=== PATIENT | female | born 1960 | race Caucasian/White ===

== ENCOUNTER 2017-06-03 07:49 | Inpatient (IN) | payer MEDICARE ==
[~2017-06-03] VITALS: Ht 165.1 cm; Wt 75.0 kg
[2017-06-03] VITALS (7 sets, daily range): BP systolic 127–175; BP diastolic 63–88; PULSE 67–83; RESP 16–20; TEMP 96.1–98.6; O2SAT 96–99
[~2017-06-03 07:49] MED LIST: ALBU1AER INH; BISA5TAB5 PO; CARI350T19 PO; HYDR-2768 PO; LEVO.075 PO; LISI-363 PO; PERC5TAB12 PO; PROM25TA5 PO; ZOLP10TA3 PO
--- NOTE | 2017-06-03 08:11 | PD ---
HPI Chief Complaint: Abdominal Pain Time Seen by Provider: 08:11 Travel History International Travel<30 days: No Contact w/Intl Traveler<30days: No Traveled to known affect area: No History of Present Illness HPI 57-year-old female came to the emergency room with her with history of epigastric abdominal pain radiating to her back as per this is been going on for past one week but really got worse last night. She has been vomiting and gagging. She's been unable to keep anything down. Patient has history of pancreatitis. Her gallbladder was taken out. Patient was in [facility] and [facility] last year and was seen by the GI specialist there. She required a stent being put in into her pancreatic duct and a sphincterotomy. The stent came out in 2 weeks. Patient does not want to go back and follow up with the GI specialist. She wants to be seen here and hence came here from [place]. Vital signs were relatively stable. [facility] Past Medical History Narrative Medical List of her past medical, surgical, social and family history is reviewed from the nursing note. High Cholesterol: Yes Gastrointestinal Disorders: Yes (GI PROBLEMS, POLYPS) Hypertension: Yes Neurologic: Yes (NEUROPATHY) Pancreatitis: Yes Thyroid Disease: Yes Tubal Ligation: Yes Past Surgical History Cholecystectomy: Yes Hysterectomy: Yes (PARTIAL) Pacemaker: No Social History Alcohol Use: No Tobacco Use: Yes Substance Use: No Allergies-Medications (Allergen,Severity, Reaction): Coded Allergies: diatrizoate meglumine (Unverified Allergy, Severe, Hives, 01/10/17) gadobenic acid (Unverified Allergy, Severe, Hives, 01/10/17) gadodiamide (Unverified Allergy, Severe, Hives, 01/10/17) gadoteridol (Unverified Allergy, Severe, Hives, 01/10/17) iodixanol (Unverified Allergy, Severe, Hives, 01/10/17) iohexol (Unverified Allergy, Severe, Hives, 01/10/17) tramadol (Unverified Adverse Reaction, Intermediate, 01/10/17) N/V, SHAKES & SWEATS morphine (Verified Adverse Reaction, Mild, ABDOMINAL BURNING, 06/03/17) Comments List of her allergies reviewed from the nursing note. Reported Meds & Prescriptions Reported Meds & Active Scripts Active Reported Hydrocodone-Acetamin 2.5-325 (Hydrocodone/Acetaminophen) 2.5 Mg-325 Mg Tablet Tab PO Zolpidem (Zolpidem Tartrate) 10 Mg Tab 10 Mg PO HS PRN Phenergan (Promethazine HCl) 25 Mg Tablet 25 Mg PO Q6H PRN Soma (Carisoprodol) 350 Mg Tab 350 Mg PO QID PRN Synthroid (Levothyroxine Sodium) 75 Mcg Tab 75 Mcg PO DAILY Lisinopril 20 Mg Tab 20 Mg PO DAILY Narrative Medication List of her home medications reviewed from the nursing note. Review of Systems Except as stated in HPI: all other systems reviewed are Neg Gastrointestinal: Positive: Nausea, Vomiting, Abdominal Pain Physical Exam Narrative GENERAL: Awake, alert, moderate distress SKIN: Focused skin assessment warm/dry. HEAD: Atraumatic. Normocephalic. EYES: Pupils equal and round. No scleral icterus. No injection or drainage. ENT: No nasal bleeding or discharge. Mucous membranes pink and moist. NECK: Trachea midline. No JVD. CARDIOVASCULAR: Regular rate and rhythm. No murmur appreciated. RESPIRATORY: No accessory muscle use. Clear to auscultation. Breath sounds equal bilaterally. GASTROINTESTINAL: Abdomen soft, non-tender, nondistended. Hepatic and splenic margins not palpable. MUSCULOSKELETAL: No obvious deformities. No clubbing. No cyanosis. No edema. NEUROLOGICAL: Awake and alert. No obvious cranial nerve deficits. Motor grossly within normal limits. Normal speech. PSYCHIATRIC: Appropriate mood and affect; insight and judgment normal. Data Data Last Documented VS Vital Signs Date Time Temp Pulse Resp B/P (MAP) Pulse Ox O2 Delivery O2 Flow Rate FiO2 06/03/17 09:25 83 19 161/87 (111) 99 Room Air 06/03/17 07:51 98.6 Orders Orders Complete Blood Count With Diff (06/03/17 08:16) Comprehensive Metabolic Panel (06/03/17 08:16) Lipase (06/03/17 08:16) Urinalysis - C+S If Indicated (06/03/17 08:16) Ct Abd/Pel W/O Iv Contrast (06/03/17 08:16) Iv Access Insert/Monitor (06/03/17 08:16) Ecg Monitoring (06/03/17 08:16) Oximetry (06/03/17 08:16) Morphine Inj (Morphine Inj) (06/03/17 08:30) Ondansetron Inj (Zofran Inj) (06/03/17 08:30) Sodium Chlor 0.9% 1000 Ml Inj (Ns 1000 M (06/03/17 08:16) Sodium Chloride 0.9% Flush (Ns Flush) (06/03/17 08:30) Electrocardiogram (06/03/17 08:16) Troponin I (06/03/17 08:16) Ketorolac Inj (Toradol Inj) (06/03/17 08:30) Admit Order (Ed Use Only) (06/03/17 09:35) Labs Laboratory Tests Test 06/03/17 08:25 06/03/17 08:34 White Blood Count 11.7 TH/MM3 Red Blood Count 4.58 MIL/MM3 Hemoglobin 14.5 GM/DL Hematocrit 41.5 % Mean Corpuscular Volume 90.6 FL Mean Corpuscular Hemoglobin 31.6 PG Mean Corpuscular Hemoglobin Concent 34.9 % Red Cell Distribution Width 12.7 % Platelet Count 252 TH/MM3 Mean Platelet Volume 9.6 FL Neutrophils (%) (Auto) 64.6 % Lymphocytes (%) (Auto) 24.9 % Monocytes (%) (Auto) 6.7 % Eosinophils (%) (Auto) 3.0 % Basophils (%) (Auto) 0.8 % Neutrophils # (Auto) 7.6 TH/MM3 Lymphocytes # (Auto) 2.9 TH/MM3 Monocytes # (Auto) 0.8 TH/MM3 Eosinophils # (Auto) 0.4 TH/MM3 Basophils # (Auto) 0.1 TH/MM3 CBC Comment DIFF FINAL Differential Comment Blood Urea Nitrogen 8 MG/DL Creatinine 0.80 MG/DL Random Glucose 106 MG/DL Total Protein 7.4 GM/DL Albumin 4.1 GM/DL Calcium Level 9.4 MG/DL Alkaline Phosphatase 80 U/L Aspartate Amino Transf (AST/SGOT) 3 U/L Alanine Aminotransferase (ALT/SGPT) 13 U/L Total Bilirubin 0.3 MG/DL Sodium Level 140 MEQ/L Potassium Level 3.8 MEQ/L Chloride Level 107 MEQ/L Carbon Dioxide Level 24.1 MEQ/L Anion Gap 9 MEQ/L Estimat Glomerular Filtration Rate 74 ML/MIN Troponin I LESS THAN 0.02 NG/ML C-Reactive Protein 1.80 MG/DL Triglycerides Level 121 MG/DL Amylase Level 45 U/L Lipase 138 U/L Urine Color LIGHT-YELLOW Urine Turbidity CLEAR Urine pH 5.5 Urine Specific [place] 1.003 Urine Protein NEG mg/dL Urine Glucose (UA) NEG mg/dL Urine Ketones NEG mg/dL Urine Occult Blood NEG Urine Nitrite NEG Urine Bilirubin NEG Urine Urobilinogen LESS THAN 2.0 MG/DL Urine Leukocyte Esterase SMALL Urine RBC 1 /hpf Urine WBC 1 /hpf Urine Squamous Epithelial Cells <1 /hpf Microscopic Urinalysis Comment CULT NOT INDICATED MDM Medical Decision Making Medical Screen Exam Complete: Yes Emergency Medical Condition: Yes Medical Record Reviewed: Yes Interpretation(s) Twelve-lead EKG was reviewed by me. Normal sinus rhythm, normal axis, nonspecific ST-T wave changes. Heart rate of 67 bpm. Differential Diagnosis Acute pancreatitis, dehydration Narrative Course 9:10 AM blood test results are back and within acceptable limits. However CT scan of the abdomen and pelvis suggests some peripancreatic stranding suggestive of acute pancreatitis. Given her significant past medical history I would like to admit her so that she can be seen by GI specialist. Patient was medicated for pain and nausea and IV fluid given. Procedures EKG Prior to Arrival: No Diagnosis Primary Impression: Acute pancreatitis Qualified Codes: K85.90 - Acute pancreatitis without necrosis or infection, unspecified Additional Impression: Intractable pain Admitting Information Admitting Physician Requests: Vandana Payan MD Jun 03, 2017 08:11
[2017-06-03] MEDS ORDERED: SODIUM CHLOR 0.9% 1000 ML INJ 1,000 ML IV SCH (08:16)
[2017-06-03] MEDS ORDERED: MORPHINE SULFATE 4 MG/ML INJ IV PUSH ONE (08:30)
[2017-06-03] MEDS ORDERED: ONDANSETRON HCL 4 MG/2 ML VIAL IVP ONE (08:30)
[2017-06-03] MEDS ORDERED: KETOROLAC TROMETHAMINE 30 MG/ML (IVP) VIAL IV PUSH ONE (08:30)
[2017-06-03 08:36] LABS: AUTOMATED NEUTROPHIL # 7.6 TH/MM3 (1.8-7.7); BASOPHIL # 0.1 TH/MM3 (0-0.2); BASOPHIL % 0.8 % (0.0-2.0); EOSINOPHIL # 0.4 TH/MM3 (0-0.4); HEMATOCRIT 41.5 % (35.0-46.0); HEMOGLOBIN 14.5 GM/DL (11.6-15.3); LYMPH % 24.9 % (9.0-44.0); LYMPHOCYTE # 2.9 TH/MM3 (1.0-4.8); MEAN CELL VOLUME 90.6 FL (80.0-100.0); MEAN CORPUSCULAR HEMOGLOBIN 31.6 PG (27.0-34.0); MEAN CORPUSCULAR HGB CONC 34.9 % (32.0-36.0); MEAN PLATELET VOLUME 9.6 FL (7.0-11.0); MONO % 6.7 % (0.0-8.0); MONOCYTE # 0.8 TH/MM3 (0-0.9); NEUT % 64.6 % (16.0-70.0); PLATELET COUNT 252 TH/MM3 (150-450); RED BLOOD COUNT 4.58 MIL/MM3 (4.00-5.30); RED CELL DISTRIBUTION WIDTH 12.7 % (11.6-17.2); WHITE BLOOD COUNT 11.7 TH/MM3 (4.0-11.0)
[2017-06-03 08:50] LABS: BILIRUBIN, URINE NEG (NEG); BLOOD, URINE NEG (NEG); GLUCOSE,URINE NEG (NEG); KETONE, URINE NEG (NEG); NITRITE,URINE NEG (NEG); PH, URINE 5.5 (5.0-8.5); SQUAMOUS EPITHELIAL CELL URINE <1 /hpf (0-5); URINE COLOR LIGHT-YELLOW (YELLW/STRAW); URINE LEUKOCYTE ESTERASE SMALL (NEG)
[2017-06-03 08:51] LABS: ALBUMIN 4.1 GM/DL (3.4-5.0); AST (GOT) 3 U/L (15-37); BICARBONATE 24.1 MEQ/L (21.0-32.0); BLOOD UREA NITROGEN 8 MG/DL (7-18); CALCIUM 9.4 MG/DL (8.5-10.1); CHLORIDE 107 MEQ/L (98-107); GLOMERULAR FILTRATION RATE 74 ML/MIN (>89); GLUCOSE,RANDOM 106 MG/DL (74-106); LIPASE 138 U/L (73-393); SODIUM (NA) 140 MEQ/L (136-145)
[2017-06-03 08:52] LABS: ALT (GPT) 13 U/L (10-53)
[2017-06-03 08:56] LABS: ALKALINE PHOSPHATASE 80 U/L (45-117); TOTAL BILIRUBIN ADULT 0.3 MG/DL (0.2-1.0); TOTAL PROTEIN 7.4 GM/DL (6.4-8.2); TROPONIN I LESS THAN 0.02 NG/ML (0.02-0.05)
--- NOTE | 2017-06-03 09:00 | RADRPT ---
EXAM DATE/TIME: 06/03/2017 08:38 [facility] COMPARISON: No previous studies available for comparison. INDICATIONS : Epigastric abdominal pain for one week. ORAL CONTRAST: No oral contrast ingested. RADIATION DOSE: 11.10 CTDIvol (mGy) MEDICAL HISTORY : Pancreatitis. Hypertension. SURGICAL HISTORY : Appendectomy. Cholecystectomy.Colon resection.Pancreatic stent, hysterectomy. ENCOUNTER: Initial ACUITY: 1 week PAIN SCALE: 5/10 LOCATION: Bilateral upper quadrant TECHNIQUE: Volumetric scanning of the abdomen and pelvis was performed. Using automated exposure control and ad justment of the mA and/or kV according to patient size, radiation dose was kept as low as reasonably achievable to obtain optimal diagnostic quality images. DICOM format image data is available electro nically for review and comparison. FINDINGS: LOWER LUNGS: The visualized lower lungs are clear. LIVER: Homogeneous density without lesion. There is no dilation of the biliary tree. No calcified gallston es. Status post cholecystectomy. SPLEEN: Normal size without lesion. PANCREAS: Mild peripancreatic inflammatory changes are noted suggestive of acute pancreatitis. No focal pancrea tic abscess or pseudocyst is noted. Correlation with amylase and lipase is recommended. KIDNEYS: Normal in size and shape. There is no mass, stone, or hydronephrosis. ADRENAL GLANDS: Within normal limits. VASCULAR: There is no aortic aneurysm. BOWEL/MESENTERY: The stomach, small bowel, and colon demonstrate no acute abnormality. There is no free intraperitone al air or fluid. ABDOMINAL WALL: Within normal limits. RETROPERITONEUM: There is no lymphadenopathy. BLADDER: No wall thickening or mass. REPRODUCTIVE: Within normal limits. INGUINAL: There is no lymphadenopathy or hernia. MUSCULOSKELETAL: Within normal limits for patient age. CONCLUSION: Mild peripancreatic inflammatory changes are noted suggestive of acute pancreatitis. No focal pancrea tic abscess or pseudocyst is noted. Correlation with amylase and lipase is recommended. Milton Rose MD on June 03, 2017 at 8:50 Board Certified Radiologist. This report was verified electronically.
[2017-06-03] MEDS ORDERED: HEPARIN SODIUM - SQ 10,000 UNITS/ML VIAL SQ SCH (09:45)
[2017-06-03] MEDS ORDERED: SODIUM CHLORIDE 0.9% FLUSH 10 ML FLUSH IV FLUSH PRN (09:45)
[2017-06-03] MEDS ORDERED: MORPHINE SULFATE 4 MG/ML INJ IV PUSH PRN (09:45)
[2017-06-03 10:04] LABS: C-REACTIVE PROTEIN 1.8 MG/DL (0.00-0.30)
--- NOTE | 2017-06-03 10:27 | PD.CONS ---
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 Pain began intermittently a week ago and worse after eating, worsened last night after eating sandwich and was constant and severe. Admits nausea. NO vomiting, change in bowel habits, blood in stool, unintended weight loss. She had similar pain in 06/2016, seen at [facility] where she had ERCP and pancreatic stent placed which was removed 2 weeks after. She had episode 2013 and had cholecystectomy. Was seen in 2013 at [facility] by Dr Villagran who did pancreatic bx, S/P workup with EUS with FNA and FU imaging, Ca19-9. Workup was benign. Denies ETOh. REgularly Takes levothyroxine , lisinoprin, a statin, gabapentin, Soma, ambien. PFSH Past Medical History hypothyroid- autoimmune HTN HLD Past Surgical History cholecystectomy ERCP with pancreatic stent placement and subsequent removal hernia repair x 2 colon resection appy hysterectomy 2 x cervical fusion tubal ligation Coded Allergies: diatrizoate meglumine (Unverified Allergy, Severe, Hives, 01/10/17) gadobenic acid (Unverified Allergy, Severe, Hives, 01/10/17) gadodiamide (Unverified Allergy, Severe, Hives, 01/10/17) gadoteridol (Unverified Allergy, Severe, Hives, 01/10/17) iodixanol (Unverified Allergy, Severe, Hives, 01/10/17) iohexol (Unverified Allergy, Severe, Hives, 01/10/17) tramadol (Unverified Adverse Reaction, Intermediate, 01/10/17) N/V, SHAKES & SWEATS morphine (Verified Adverse Reaction, Mild, ABDOMINAL BURNING, 06/03/17) Family History Last Impressions Abdomen/Pelvis CT 06/03/17 0816 Signed Impressions: Service Date/Time: Monday, June 03, 2017 08:38 - CONCLUSION: Mild peripancreatic inflammatory changes are noted suggestive of acute pancreatitis. No focal pancreatic abscess or pseudocyst is noted. Correlation with amylase and lipase is recommended. Milton Rose MD Social History Last Impressions Abdomen/Pelvis CT 1/6/18 0816 Signed Impressions: Service Date/Time: Saturday, June 03, 2017 08:38 - CONCLUSION: Mild peripancreatic inflammatory changes are noted suggestive of acute pancreatitis. No focal pancreatic abscess or pseudocyst is noted. Correlation with amylase and lipase is recommended. Milton Rose MD Review of Systems Constitutional: DENIES: Weight loss Endocrine: DENIES: Polydipsia Eyes: DENIES: Blurred vision Ears, nose, mouth, throat: DENIES: Hearing loss Respiratory: DENIES: Cough Cardiovascular: DENIES: Chest pain Gastrointestinal: COMPLAINS OF: Abdominal pain, Nausea, DENIES: Black stools, Bloody stools, Constipation, Diarrhea, Vomiting Genitourinary: DENIES: Hematuria Musculoskeletal: DENIES: Joint Swelling Integumentary: DENIES: Jaundice Hematologic/lymphatic: DENIES: Bruising Immunologic/allergic: DENIES: Eczema Neurologic: DENIES: Abnormal gait Psychiatric: DENIES: Confusion GI Exam Vitals I&O Vital Signs Date Time Temp Pulse Resp B/P (MAP) Pulse Ox O2 Delivery O2 Flow Rate FiO2 06/03/17 09:25 83 19 161/87 (111) 99 Room Air 06/03/17 08:20 18 98 06/03/17 07:51 98.6 82 16 175/88 (117) 98 Imaging Last Impressions Abdomen/Pelvis CT 06/03/17815 Signed Impressions: Service Date/Time: Saturday, June 03, 2017 08:38 - CONCLUSION: Mild peripancreatic inflammatory changes are noted suggestive of acute pancreatitis. No focal pancreatic abscess or pseudocyst is noted. Correlation with amylase and lipase is recommended. Milton Rose MD Laboratory Test 06/03/17 08:25 06/03/17 08:34 White Blood Count 11.7 TH/MM3 Red Blood Count 4.58 MIL/MM3 Hemoglobin 14.5 GM/DL Hematocrit 41.5 % Mean Corpuscular Volume 90.6 FL Mean Corpuscular Hemoglobin 31.6 PG Mean Corpuscular Hemoglobin Concent 34.9 % Red Cell Distribution Width 12.7 % Platelet Count 252 TH/MM3 Mean Platelet Volume 9.6 FL Neutrophils (%) (Auto) 64.6 % Lymphocytes (%) (Auto) 24.9 % Monocytes (%) (Auto) 6.7 % Eosinophils (%) (Auto) 3.0 % Basophils (%) (Auto) 0.8 % Neutrophils # (Auto) 7.6 TH/MM3 Lymphocytes # (Auto) 2.9 TH/MM3 Monocytes # (Auto) 0.8 TH/MM3 Eosinophils # (Auto) 0.4 TH/MM3 Basophils # (Auto) 0.1 TH/MM3 CBC Comment DIFF FINAL Differential Comment Blood Urea Nitrogen 8 MG/DL Creatinine 0.80 MG/DL Random Glucose 106 MG/DL Total Protein 7.4 GM/DL Albumin 4.1 GM/DL Calcium Level 9.4 MG/DL Alkaline Phosphatase 80 U/L Aspartate Amino Transf (AST/SGOT) 3 U/L Alanine Aminotransferase (ALT/SGPT) 13 U/L Total Bilirubin 0.3 MG/DL Sodium Level 140 MEQ/L Potassium Level 3.8 MEQ/L Chloride Level 107 MEQ/L Carbon Dioxide Level 24.1 MEQ/L Anion Gap 9 MEQ/L Estimat Glomerular Filtration Rate 74 ML/MIN Troponin I LESS THAN 0.02 NG/ML C-Reactive Protein 1.80 MG/DL Triglycerides Level 121 MG/DL Amylase Level 45 U/L Lipase 138 U/L Urine Color LIGHT-YELLOW Urine Turbidity CLEAR Urine pH 5.5 Urine Specific [place] 1.003 Urine Protein NEG mg/dL Urine Glucose (UA) NEG mg/dL Urine Ketones NEG mg/dL Urine Occult Blood NEG Urine Nitrite NEG Urine Bilirubin NEG Urine Urobilinogen LESS THAN 2.0 MG/DL Urine Leukocyte Esterase SMALL Urine RBC 1 /hpf Urine WBC 1 /hpf Urine Squamous Epithelial Cells <1 /hpf Microscopic Urinalysis Comment CULT NOT INDICATED Physical Examination HEENT: PERRL; normocephalic; atraumatic; no jaundice. CHEST: CTA CARDIAC: Regular rate and rhythm with no murmur gallop or rubs. ABDOMEN: Soft, nondistended, epigastric and LUQ TTP; no hepatosplenomegaly; bowel sounds are present in all four quadrants. EXTREMITIES: No clubbing, cyanosis, or edema. SKIN: Normal; no rash; no jaundice. [employer]: No focal deficits; alert and oriented times three. Assessment and Plan Plan ASSESSMENT - abd pain - acute on chronic pancreatitis, unclear etiology. has had 2 episodes in past, 1st in 2012 and had gallbladder removed & EUS by Dr Villagran with benign bx; episode in 2016 for which she had ERCP and pancreatic stent placed. LFTS WNL, lipase WNL. CT imaging shows mild peripancreatic inflammation and changes suggestive acute pancreatitis, no abscess or cyst. in 2012 IGG4 was normal. regular meds include a statin per pt although her med list does not reflect this triglycerides pending, will rck IGG4 and get MRCP - pt allergic to contrast but can do 13 hours premed for contrast. PLAN - MRCP with premedication for contrast allergy - rck IGG4 - CLD - PPI - monitor labs - further recs as case unfolds This case d/w Dr Gabriel and this note is written on his behalf Sera Cyr Jun 03, 2017 10:27
[2017-06-03] MEDS ORDERED: MORPHINE SULFATE 2 MG/ML INJ IV PUSH PRN (11:00)
[2017-06-03] MEDS: ENOXAPARIN SODIUM 40 MG/0.4 ML SYRINGE SQ SCH (11:00)
[2017-06-03] MEDS: SODIUM CHLORIDE 0.9% FLUSH 10 ML FLUSH IV FLUSH PRN ×2 (11:33→15:27)
[2017-06-03] MEDS: MORPHINE SULFATE 2 MG/ML INJ IV PUSH PRN ×3 (11:33→22:31)
--- NOTE | 2017-06-03 12:45 | RADRPT ---
EXAM DATE/TIME: 06/03/2017 11:52 [facility] COMPARISON: CT ABDOMEN & PELVIS W/O CONTRAST, June 03, 2017, 8:38. INDICATIONS : Pancreatitis. MEDICAL HISTORY : Pancreatitis. Hypertension. SURGICAL HISTORY : Hysterectomy. Cholecystectomy. Fusion, cervical. ENCOUNTER: Initial ACUITY: 1 day PAIN SCORE: 5/10 LOCATION: Abdomen. TECHNIQUE: Multiplanar, multisequence magnetic resonance imaging of the abdomen was performed. H igh-resolution 3D dataset was utilized to reconstruct maximum-intensity projection (MIP) images. FINDINGS: INTRAHEPATIC BILE DUCTS: Within normal limits. No significant anatomical variant is present. EXTRAHEPATIC BILE DUCTS: The common bile duct measures 5 mm. No stone or filling defect is identi fied. GALLBLADDER: No stones, wall thickening, or pericholecystic fluid. LIVER: Normal size and signal intensity. No concerning liver lesion is identified on this non-con trast exam. PANCREAS: The main pancreatic duct is normal in size. There is no significant anatomical variant . Mild diffuse enlargement and minimal peripancreatic inflammatory changes suggest acute pancreatiti s. No mass is visualized on this non-contrast exam. OTHER: The remaining visualized structures demonstrate no acute abnormality on this non-contrast exam. CONCLUSION: 1. Mild diffuse hepatic enlargement and minimal peripancreatic inflammatory changes suggesting acute pancreatitis. Correlation with amylase and lipase values is suggested. 2. No biliary or pancreatic ductal dilatation. Milton Rose MD on June 03, 2017 at 12:39 Board Certified Radiologist. This report was verified electronically.
[2017-06-03] MEDS ORDERED: SOMA350T PO (13:35)
[2017-06-03] MEDS ORDERED: LEVO.075 PO (13:35)
[2017-06-03] MEDS ORDERED: HYDR-3649 PO (13:35)
[2017-06-03] MEDS ORDERED: ZOLP10TA3 PO (13:35)
[2017-06-03] MEDS ORDERED: LISI-515 PO (13:35)
[2017-06-03] MEDS ORDERED: PROM25TA10 PO (13:35)
[2017-06-03] MEDS: SODIUM CHLOR 0.9% 1000 ML INJ 1,000 ML IV SCH ×2 (14:13→17:04)
[2017-06-03] MEDS: PANTOPRAZOLE SODIUM 40 MG VIAL IV PUSH SCH (15:27)
--- NOTE | 2017-06-03 21:12 | HHI.HP ---
[facility] Unknown Admission Diagnosis acute pancreatitis, intractable pain Diagnoses: Chief Complaint: abdominal pain Travel History International Travel<30 Days: No Contact w/Intl Traveler <30 Da: No Traveled to Known Affected Are: No History of Present Illness 57 years old female presented to the ED with a complaint of epigastric abdominal pain radiating to her back which got extremely worse last night, with nausea vomiting. Patient has a history of pancreatitis in the past she had cholecystectomy. She followed up with GI at [facility] last year and she required a stent placed in her pancreatic duct and sphincterotomy. Patient at her decided to come here for a workup, to give from [place]. Currently abdominal pain 6 out of 10 after pain medication, nausea is settelled. Review of Systems Gastrointestinal: COMPLAINS OF: Abdominal pain, Nausea, Vomiting Except as stated in HPI: all other systems reviewed are Neg Past Family Social History Past Medical History hypothyroid- autoimmune HTN HLD Past Surgical History cholecystectomy ERCP with pancreatic stent placement and subsequent removal hernia repair x 2 colon resection appy hysterectomy 2 x cervical fusion tubal ligation Allergies: Coded Allergies: diatrizoate meglumine (Unverified Allergy, Severe, Hives, 01/10/17) gadobenic acid (Unverified Allergy, Severe, Hives, 01/10/17) gadodiamide (Unverified Allergy, Severe, Hives, 01/10/17) gadoteridol (Unverified Allergy, Severe, Hives, 01/10/17) iodixanol (Unverified Allergy, Severe, Hives, 01/10/17) iohexol (Unverified Allergy, Severe, Hives, 01/10/17) tramadol (Unverified Adverse Reaction, Intermediate, 01/10/17) N/V, SHAKES & SWEATS morphine (Verified Adverse Reaction, Mild, ABDOMINAL BURNING, 06/03/17) Family History reviewed noncontributory Social History smoke 1ppd , no alchol or illicit drugs Physical Exam Vital Signs Vital Signs Date Time Temp Pulse Resp B/P (MAP) Pulse Ox O2 Delivery O2 Flow Rate FiO2 06/03/17 20:13 98.3 70 17 134/63 (86) 96 06/03/17 16:00 96.1 73 20 141/73 (95) 98 06/03/17 12:00 96.3 68 20 127/69 (88) 96 06/03/17 11:12 96.2 67 20 140/71 (94) 96 06/03/17 09:25 83 19 161/87 (111) 99 Room Air 06/03/17 08:20 18 98 06/03/17 07:51 98.6 82 16 175/88 (117) 98 Physical Exam GENERAL: This is a well-nourished, well-developed patient, in no apparent distress. SKIN: No rashes, ecchymoses or lesions. Cool and dry. HEAD: Atraumatic. Normocephalic. No temporal or scalp tenderness. EYES: Pupils equal round and reactive. Extraocular motions intact. No scleral icterus. No injection or drainage. ENT: Nose without bleeding, purulent drainage or septal hematoma. Throat without erythema, tonsillar hypertrophy or exudate. Uvula midline. Airway patent. NECK: Trachea midline. No JVD or lymphadenopathy. Supple, nontender, no meningeal signs. CARDIOVASCULAR: Regular rate and rhythm without murmurs, gallops, or rubs. RESPIRATORY: Clear to auscultation. Breath sounds equal bilaterally. No wheezes , rales, or rhonchi. GASTROINTESTINAL: Abdomen soft,ttp epigastric area . . No guarding. MUSCULOSKELETAL: Extremities without clubbing, cyanosis, or edema. No joint tenderness, effusion, or edema noted. No calf tenderness. Negative Homans sign bilaterally. NEUROLOGICAL: Awake and alert. Cranial nerves II through XII intact. Motor and sensory grossly within normal limits. Five out of 5 muscle strength in all muscle groups. Normal speech. Laboratory Laboratory Tests Test 06/03/17 08:25 06/03/17 08:34 06/03/17 13:20 White Blood Count 11.7 Red Blood Count 4.58 Hemoglobin 14.5 Hematocrit 41.5 Mean Corpuscular Volume 90.6 Mean Corpuscular Hemoglobin 31.6 Mean Corpuscular Hemoglobin Concent 34.9 Red Cell Distribution Width 12.7 Platelet Count 252 Mean Platelet Volume 9.6 Neutrophils (%) (Auto) 64.6 Lymphocytes (%) (Auto) 24.9 Monocytes (%) (Auto) 6.7 Eosinophils (%) (Auto) 3.0 Basophils (%) (Auto) 0.8 Neutrophils # (Auto) 7.6 Lymphocytes # (Auto) 2.9 Monocytes # (Auto) 0.8 Eosinophils # (Auto) 0.4 Basophils # (Auto) 0.1 CBC Comment DIFF FINAL Differential Comment Blood Urea Nitrogen 8 Creatinine 0.80 Random Glucose 106 Total Protein 7.4 Albumin 4.1 Calcium Level 9.4 Alkaline Phosphatase 80 Aspartate Amino Transf (AST/SGOT) 3 Alanine Aminotransferase (ALT/SGPT) 13 Total Bilirubin 0.3 Sodium Level 140 Potassium Level 3.8 Chloride Level 107 Carbon Dioxide Level 24.1 Anion Gap 9 Estimat Glomerular Filtration Rate 74 Troponin I LESS THAN 0.02 C-Reactive Protein 1.80 Triglycerides Level 121 Amylase Level 45 Lipase 138 Urine Color LIGHT-YELLOW Urine Turbidity CLEAR Urine pH 5.5 Urine Specific [place] 1.003 Urine Protein NEG Urine Glucose (UA) NEG Urine Ketones NEG Urine Occult Blood NEG Urine Nitrite NEG Urine Bilirubin NEG Urine Urobilinogen LESS THAN 2.0 Urine Leukocyte Esterase SMALL Urine RBC 1 Urine WBC 1 Urine Squamous Epithelial Cells <1 Microscopic Urinalysis Comment CULT NOT INDICATED Result Diagram: 06/03/17 0825 06/03/17 0825 Imaging Last Impressions Abdomen/Pelvis CT 06/03/17 0816 Signed Impressions: Service Date/Time: Saturday, June 03, 2017 08:38 - CONCLUSION: Mild peripancreatic inflammatory changes are noted suggestive of acute pancreatitis. No focal pancreatic abscess or pseudocyst is noted. Correlation with amylase and lipase is recommended. Milton Rose MD Caprini VTE Risk Assessment Caprini VTE Risk Assessment: Mod/High Risk (score >= 2) Caprini Risk Assessment Model Point Value = 1 Point Value = 2 Point Value = 3 Point Value = 5 Age 41-60 Minor surgery BMI > 25 kg/m2 Swollen legs Varicose veins or History of unexplained or recurrent spontaneous Oral contraceptives or hormone replacement Sepsis (< 1 month) Serious lung disease, including pneumonia (< 1 month) Abnormal pulmonary function Acute myocardial infarction Congestive heart failure (< 1 month) History of inflammatory bowel disease Medical patient at bed rest Age 61-74 Arthroscopic surgery Major open surgery (> 45 min) Laparoscopic surgery (> 45 min) Malignancy Confined to bed (> 72 hours) Immobilizing plaster cast Central venous access Age >= 75 History of VTE Family history of VTE Factor V Leiden Prothrombin 25061C Lupus anticoagulant Anticardiolipin antibodies Elevated serum homocysteine Heparin-induced thrombocytopenia Other congenital or acquired thrombophilia Stroke (< 1 month) Elective arthroplasty Hip, pelvis, or leg fracture Acute spinal cord injury (< 1 month) Prophylaxis Regimen Total Risk Factor Score Risk Level Prophylaxis Regimen 0-1 Low Early ambulation 2 Moderate Order ONE of the following: *Sequential Compression Device (SCD) *Heparin 5000 units SQ BID 3-4 Higher Order ONE of the following medications: *Heparin 5000 units SQ TID *Enoxaparin/Lovenox 40 mg SQ daily (WT < 150 kg, CrCl > 30 mL/min) *Enoxaparin/Lovenox 30 mg SQ daily (WT < 150 kg, CrCl > 10-29 mL/min) *Enoxaparin/Lovenox 30 mg SQ BID (WT < 150 kg, CrCl > 30 mL/min) AND/OR *Sequential Compression Device (SCD) 5 or more Highest Order ONE of the following medications: *Heparin 5000 units SQ TID (Preferred with Epidurals) *Enoxaparin/Lovenox 40 mg SQ daily (WT < 150 kg, CrCl > 30 mL/min) *Enoxaparin/Lovenox 30 mg SQ daily (WT < 150 kg, CrCl > 10-29 mL/min) *Enoxaparin/Lovenox 30 mg SQ BID (WT < 150 kg, CrCl > 30 mL/min) AND *Sequential Compression Device (SCD) Assessment and Plan Assessment and Plan 57 years old female presented with epigastric abdominal pain nausea vomiting Acute on chronic pancreatitis History of biliary obstruction in the past with a stent placed History of hyperlipidemia Hypertension DVT prophylaxis Plan Admit for observation and pain management with morphine IV fluid, monitor electrolytes Monitor CMP and lipase Consult GI Continue home meds DVT prophylaxis with heparin and SCDs Discussed Condition With patient and JaydonciTerri Strickland MD Jun 03, 2017 21:12
[2017-06-03] MEDS: SODIUM CHLORIDE 0.9% FLUSH 10 ML FLUSH IV FLUSH SCH (22:30)
[2017-06-03] MEDS: ONDANSETRON HCL 4 MG/2 ML VIAL IV PUSH PRN (22:46)
[2017-06-04] VITALS (7 sets, daily range): BP systolic 112–160; BP diastolic 68–87; PULSE 63–85; RESP 16–20; TEMP 97–98.1; O2SAT 96–98
[2017-06-04] MEDS: SODIUM CHLOR 0.9% 1000 ML INJ 1,000 ML IV SCH ×3 (01:45→17:32)
[2017-06-04 05:59] LABS: AUTOMATED NEUTROPHIL # 5.5 TH/MM3 (1.8-7.7); BASOPHIL % 0.4 % (0.0-2.0); EOSINOPHIL # 0.4 TH/MM3 (0-0.4); EOSINOPHIL % 4.1 % (0.0-4.0); HEMATOCRIT 37.2 % (35.0-46.0); HEMOGLOBIN 12.4 GM/DL (11.6-15.3); LYMPH % 25.4 % (9.0-44.0); LYMPHOCYTE # 2.2 TH/MM3 (1.0-4.8); MEAN CELL VOLUME 92.5 FL (80.0-100.0); MEAN CORPUSCULAR HGB CONC 33.5 % (32.0-36.0); MEAN PLATELET VOLUME 9.6 FL (7.0-11.0); MONO % 7.5 % (0.0-8.0); MONOCYTE # 0.7 TH/MM3 (0-0.9); NEUT % 62.6 % (16.0-70.0); PLATELET COUNT 196 TH/MM3 (150-450); RED BLOOD COUNT 4.02 MIL/MM3 (4.00-5.30); RED CELL DISTRIBUTION WIDTH 12.6 % (11.6-17.2); WHITE BLOOD COUNT 8.8 TH/MM3 (4.0-11.0)
[2017-06-04] MEDS: SODIUM CHLORIDE 0.9% FLUSH 10 ML FLUSH IV FLUSH SCH ×2 (09:00→20:18)
[2017-06-04] MEDS: MORPHINE SULFATE 2 MG/ML INJ IV PUSH PRN ×3 (10:03→20:18)
[2017-06-04] MEDS: ENOXAPARIN SODIUM 40 MG/0.4 ML SYRINGE SQ SCH (10:04)
[2017-06-04] MEDS: ONDANSETRON HCL 4 MG/2 ML VIAL IV PUSH PRN ×2 (10:13→20:21)
--- NOTE | 2017-06-04 12:49 | EKG ---
Date Performed: 06/03/2017 Time Performed: 09:26:34 PTAGE: 57 years EKG: Sinus rhythm NORMAL ECG PREVIOUS TRACING : 11/02/2012 15.06 Compared to prior tracing no significant change DOCTOR: Bert Lucio Interpretating Date/Time 06/04/2017 12:48:36
--- NOTE | 2017-06-04 13:06 | HHI.PR ---
Subjective Remarks in no acute distress. tolerating the clear liquid diet. abdominal pain is better. no nausea or vomiting. Objective Vitals Vital Signs Date Time Temp Pulse Resp B/P (MAP) Pulse Ox O2 Delivery O2 Flow Rate FiO2 06/04/17 12:18 97.0 63 18 133/79 (97) 98 06/04/17 10:14 16 06/04/17 08:53 97.3 74 18 126/83 (97) 97 06/04/17 08:11 97.9 66 20 140/68 (92) 96 06/04/17 04:14 97.9 68 16 112/69 (83) 97 06/04/17 00:17 98.1 85 16 150/82 (104) 97 06/03/17 20:13 98.3 70 17 134/63 (86) 96 06/03/17 16:00 96.1 73 20 141/73 (95) 98 I/O 06/03/17 06/03/17 06/03/17 06/04/17 06/04/17 06/04/17 07:00 15:00 23:00 07:00 15:00 23:00 Intake Total 1240 ml Balance 1240 ml Intake Oral 240 ml IV Total 1000 ml # Voids 1 3 # Bowel Movements 0 Result Diagram: 06/04/17 0510 06/03/17 0825 Imaging Last Impressions Abdomen/Pelvis CT 06/03/17 0816 Signed Impressions: Service Date/Time: Saturday, June 03, 2017 08:38 - CONCLUSION: Mild peripancreatic inflammatory changes are noted suggestive of acute pancreatitis. No focal pancreatic abscess or pseudocyst is noted. Correlation with amylase and lipase is recommended. Milton Rose MD Cholangiopancreatography MRI 06/03/17 0000 Signed Impressions: Service Date/Time: Saturday, June 03, 2017 11:52 - CONCLUSION: 1. Mild diffuse hepatic enlargement and minimal peripancreatic inflammatory changes suggesting acute pancreatitis. Correlation with amylase and lipase values is suggested. 2. No biliary or pancreatic ductal dilatation. Milton Rose MD Objective Remarks GENERAL: This is a well-nourished, well-developed patient, in no apparent distress. CARDIOVASCULAR: Regular rate and regular rhythm without murmurs, gallops, or rubs. RESPIRATORY: Clear to auscultation. Breath sounds equal bilaterally. No wheezes , rales, or rhonchi. GASTROINTESTINAL: Abdomen soft, mild epigastric tenderness, nondistended. Normal, active bowel sounds MUSCULOSKELETAL: Extremities without clubbing, cyanosis, or edema. NEURO: Alert & Oriented x4 to person, place, time, situation. Moves all ext x4 Medications and IVs Inpatient Medications Enoxaparin Sodium (Lovenox Inj) 40 mg DAILY SQ Last administered on 06/04/17 10 :04; Start 06/03/17 at 11:00 Ketorolac Tromethamine (Toradol Inj) 30 mg ONCE ONCE IV PUSH Last administered on 06/03/17 09:21; Start 06/03/17 at 08:30; Stop 06/03/17 at 08:31; Status DC Morphine Sulfate (Morphine Inj) 2 mg Q4H PRN IV PUSH PAIN SCALE 1-5; Start 06/03 at 11:00 Ondansetron HCl (Zofran Inj) 4 mg Q6H PRN IV PUSH NAUSEA OR VOMITING Last administered on 06/04/17at 10:13; Start 06/03/17 at 15:00 Pantoprazole Sodium (Protonix Inj) 40 mg Q24H IV PUSH Last administered on at 15:27; Start 06/03/17 at 14:00 Sodium Chloride (NS Flush) 2 ml BID IV FLUSH Last administered on 06/04/17at 09: 00; Start 06/03/17 at 21:00 A/P Assessment and Plan A/P - acute pancreatitis- abdominal pain is slowly improving- tolerated the clear liquid diet. MRCP with no pancreatic or biliary ductal dilatation. will advance the diet to full liquid- continue supportive care with IV fluid, antiemetics and pain control as needed. GI consult appreciated. -hypertension/ hypothyroidism; resume home meds. -DVT prophylaxis with subq Lovenox. Baylee Chavira MD Jun 04, 2017 13:06
[2017-06-04] MEDS: PANTOPRAZOLE SODIUM 40 MG VIAL IV PUSH SCH (14:23)
[2017-06-05] VITALS: BP 125/75; PULSE 66; RESP 16; TEMP 97.7; O2SAT 97
[2017-06-05] MEDS: SODIUM CHLOR 0.9% 1000 ML INJ 1,000 ML IV SCH ×3 (01:46→17:45)
[2017-06-05] MEDS: LEVOTHYROXINE SODIUM 75 MCG TAB PO SCH (05:43)
[2017-06-05 08:00] VITALS: BP 97/139; PULSE 58; RESP 16; RESP 18; TEMP 96.6; O2SAT 18; O2SAT 97
[2017-06-05] MEDS: ENOXAPARIN SODIUM 40 MG/0.4 ML SYRINGE SQ SCH (08:56)
[2017-06-05] MEDS: SODIUM CHLORIDE 0.9% FLUSH 10 ML FLUSH IV FLUSH SCH ×2 (08:57→22:15)
[2017-06-05] MEDS: LISINOPRIL 20 MG TAB PO SCH (08:57)
[2017-06-05] MEDS ORDERED: ZOLPIDEM TARTRATE 5 MG TAB PO PRN (09:00)
[2017-06-05] MEDS: MORPHINE SULFATE 2 MG/ML INJ IV PUSH PRN ×3 (09:02→13:28)
[2017-06-05] MEDS: ONDANSETRON HCL 4 MG/2 ML VIAL IV PUSH PRN ×2 (09:02→18:28)
--- NOTE | 2017-06-05 09:13 | HHI.PR ---
Subjective Remarks patient with persistent abdominal pain- 8 out of 10 with occasional nausea + flatus Objective Vitals Vital Signs Date Time Temp Pulse Resp B/P (MAP) Pulse Ox O2 Delivery O2 Flow Rate FiO2 06/05/17 00:00 97.7 66 16 125/75 (92) 97 06/04/17 20:00 98.0 67 17 156/73 (100) 98 06/04/17 16:24 97.0 73 18 160/87 (111) 97 06/04/17 16:22 16 06/04/17 12:18 97.0 63 18 133/79 (97) 98 I/O 06/04/17 06/04/17 06/04/17 06/05/17 06/05/17 06/05/17 07:00 15:00 23:00 07:00 15:00 23:00 Intake Total 1240 ml 360 ml 1875 ml Balance 1240 ml 360 ml 1875 ml Intake Oral 240 ml 360 ml 480 ml IV Total 1000 ml 1395 ml # Voids 3 2 2 Result Diagram: 06/04/17 0510 06/03/17 0825 Imaging Last Impressions Abdomen/Pelvis CT 06/03/17 0816 Signed Impressions: Service Date/Time: Saturday, June 03, 2017 08:38 - CONCLUSION: Mild peripancreatic inflammatory changes are noted suggestive of acute pancreatitis. No focal pancreatic abscess or pseudocyst is noted. Correlation with amylase and lipase is recommended. Milton Rose MD Cholangiopancreatography MRI 06/03/17 0000 Signed Impressions: Service Date/Time: Saturday, June 03, 2017 11:52 - CONCLUSION: 1. Mild diffuse hepatic enlargement and minimal peripancreatic inflammatory changes suggesting acute pancreatitis. Correlation with amylase and lipase values is suggested. 2. No biliary or pancreatic ductal dilatation. Milton Rose MD Objective Remarks awake and alert, no jaundice anicteric lungs clear regular rhythm abdomen- soft, + tenderness on deep palpation of epigastric area extremities no edema neuro exam- non focal A/P Assessment and Plan 57 years old female Acute pancreatitis- history of previous pancreatitis had stent placed in the past ? etio - work up in progress. At one point - deemed to be possibly autoimmune related MRCP with no pancreatic or biliary ductal dilatation. GI ff- US ordered keep on clear liquids- prn IV Morphine- per patient causes more nausea- we will change to IV dilaudid Hypertension/ hypothyroidism; resume home meds. History of peripheral neuropathy restart on her Gabapentin 400 mg po qid History of Insomnia -restart her Ambien 10 mg hs prn - -DVT prophylaxis with subq Lovenox. - patient also up and ambulating Tej Aldridge MD Jun 05, 2017 09:13
[2017-06-05] MEDS ORDERED: GABA400C5 PO ×2 (09:17→09:28)
[2017-06-05] MEDS: GABAPENTIN 400 MG CAP PO SCH ×3 (11:58→22:15)
[2017-06-05 12:00] VITALS: BP 150/81; PULSE 60; RESP 18; TEMP 96.6; O2SAT 99
[2017-06-05] MEDS: PANTOPRAZOLE SODIUM 40 MG VIAL IV PUSH SCH (13:28)
--- NOTE | 2017-06-05 14:17 | HHI.GIFU ---
Subjective Remarks diffuse abd. tenderness, initially in the epigastric area afebrile family in rm. nausea (AlessandraMiryam GonzalezRommel BEDOLLA) Objective Vitals I&O Vital Signs Date Time Temp Pulse Resp B/P (MAP) Pulse Ox O2 Delivery O2 Flow Rate FiO2 06/05/17 12:00 96.6 60 18 150/81 (104) 99 06/05/17 08:00 96.6 58 16 97/139 (125) 18 06/05/17 00:00 97.7 66 16 125/75 (92) 97 06/04/17 20:00 98.0 67 17 156/73 (100) 98 06/04/17 16:24 97.0 73 18 160/87 (111) 97 06/04/17 16:22 16 I/O 06/04/17 06/04/17 06/04/17 06/05/17 06/05/17 06/05/17 07:00 15:00 23:00 07:00 15:00 23:00 Intake Total 1240 ml 360 ml 1875 ml Balance 1240 ml 360 ml 1875 ml Intake Oral 240 ml 360 ml 480 ml IV Total 1000 ml 1395 ml # Voids 3 2 2 Laboratory Laboratory Tests Test 06/05/17 13:25 Imaging Last Impressions Abdomen/Pelvis CT 06/03/17 0816 Signed Impressions: Service Date/Time: Saturday, June 03, 2017 08:38 - CONCLUSION: Mild peripancreatic inflammatory changes are noted suggestive of acute pancreatitis. No focal pancreatic abscess or pseudocyst is noted. Correlation with amylase and lipase is recommended. Milton Rose MD Cholangiopancreatography MRI 06/03/17 0000 Signed Impressions: Service Date/Time: Saturday, June 03, 2017 11:52 - CONCLUSION: 1. Mild diffuse hepatic enlargement and minimal peripancreatic inflammatory changes suggesting acute pancreatitis. Correlation with amylase and lipase values is suggested. 2. No biliary or pancreatic ductal dilatation. Milton Rose MD Physical Exam HEENT: Pupils round and reactive to light; normocephalic; atraumatic; no jaundice. NECK: Neck is supple, no JVD, no lymphadenopathy. CHEST: Chest is clear to auscultation and percussion. CARDIAC: Regular rate and rhythm with no murmur gallop or rubs. ABDOMEN: Soft, mild bloating , generalized tenderness; bowel sounds soft. EXTREMITIES: No clubbing, cyanosis, or edema. SKIN: Normal; no rash; no jaundice. OVERSIZE LOAD PILOT ESCORT: No focal deficits; alert and oriented times three. (Miryam Aparicio) Assessment and Plan Plan ASSESSMENT - abd pain - acute on chronic pancreatitis, unclear etiology. has had 2-4 episodes in past, 1st in 2012 and had gallbladder removed & EUS by Dr Villagran with benign bx; episode in 2016 for which she had ERCP and pancreatic stent placed. LFTS WNL, lipase 100 CT imaging shows mild peripancreatic inflammation and changes suggestive acute pancreatitis, no abscess or cyst. in 2012 IGG4 was normal. regular meds include a statin per pt although not on her her med list MRCP 06/05, showing Mild diffuse hepatic enlargement and minimal peripancreatic inflammatory changes suggesting acute pancreatitis. Correlation with amylase and lipase values is suggested. No biliary or pancreatic ductal dilatation. Last EGD 2013? /Colonoscopy 2014 and Hx Appendectomy and Colectomy PLAN - Diet , full liquid for now. - Hydration - US abdomen pending. 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
[2017-06-05 14:32] LABS: CARCINOEMBRYONIC ANTIGEN 4.1 NG/ML (0.2-5.0)
[2017-06-05 14:39] LABS: % SATURATION IRON PROFILE 12.6 % (20-50); IRON (FE) 34 MCG/DL (50-170); TOTAL IRON BINDING CAPACITY 269 MCG/DL (250-450)
[2017-06-05 14:41] LABS: FERRITIN 88 NG/ML (8-252)
[2017-06-05 15:10] LABS: CA 19-9 17.5 U/ML (0.0-35.0)
[2017-06-05 16:00] VITALS: BP 149/85; PULSE 75; RESP 18; TEMP 97.8; O2SAT 96
--- NOTE | 2017-06-05 16:00 | RADRPT ---
EXAM DATE/TIME: 06/05/2017 13:50 [place] COMPARISON: CT ABDOMEN & PELVIS W/O CONTRAST, June 03, 2017, 8:38. INDICATIONS : Evaluate for mesenteric ischemia. MEDICAL HISTORY : Hypothyroidism. Hypercholesterolemia. Pancreatitis. Neuropathy. HTN. GI problems. Polyps. Abdominal p ain. Nausea/vomiting. Tobacco use. SURGICAL HISTORY : Cholecystectomy. Tubal ligation. Hysterectomy. C3-7 fusions. ENCOUNTER: Initial ACUITY: 4 - 6 days PAIN SCORE: 10/10 LOCATION: Abdomen. AORTA: SAGITTAL PROXIMAL: 45.9 cm/sec SAGITTAL MID: 44.5 cm/sec SAGITTAL DISTAL: Limited views CELIAC ARTERY: CA ORIGIN: 147.4 cm/sec CA PROXIMAL: 153.6 cm/sec CA MID: 95.4 cm/sec CA DISTAL: 54.4 cm/sec HEPATIC ARTERY: 108.0 cm/sec SPLENIC ARTERY: 89.9 cm/sec SUPERIOR MESENTERIC ARTERY: SMA PROXIMAL: 127.8 cm/sec SMA MID: 94.8 cm/sec SMA DISTAL: 90.5 cm/sec FINDINGS: No significant atherosclerotic plaque is identified. There is slight elevation in peak systolic flow study of the celiac artery. Loss a measurements are otherwise normal. CONCLUSION: 1. No evidence of hemodynamically significant stenosis. 2. Mild elevation of peak systolic loss in the celiac axis which may represent mild stenosis. 3. Otherwise normal exam. Crow Stephen MD on June 05, 2017 at 15:45 Board Certified Radiologist. This report was verified electronically.
[2017-06-05] MEDS: HYDROmorphone HCL PF 2 MG/ML VIAL IV PUSH PRN ×2 (18:29→22:14)
[2017-06-05 21:30] VITALS: BP 155/78; PULSE 70; RESP 17; TEMP 98; O2SAT 94
[2017-06-05] MEDS: ZOLPIDEM TARTRATE 10 MG TAB PO PRN (22:18)
[2017-06-06 00:15] VITALS: BP 143/78; PULSE 77; RESP 17; TEMP 97.3; O2SAT 95
[2017-06-06] MEDS: SODIUM CHLOR 0.9% 1000 ML INJ 1,000 ML IV SCH ×3 (00:46→16:58)
[2017-06-06] MEDS: ONDANSETRON HCL 4 MG/2 ML VIAL IV PUSH PRN ×2 (02:26→08:26)
[2017-06-06] MEDS: HYDROmorphone HCL PF 2 MG/ML VIAL IV PUSH PRN (02:27)
[2017-06-06 04:35] VITALS: BP 140/80; PULSE 72; RESP 17; TEMP 97.9; O2SAT 95
[2017-06-06] MEDS: LEVOTHYROXINE SODIUM 75 MCG TAB PO SCH (06:23)
[2017-06-06 08:00] VITALS: BP 143/73; PULSE 66; RESP 18; TEMP 97.5; O2SAT 96
[2017-06-06] MEDS: LISINOPRIL 20 MG TAB PO SCH (08:27)
[2017-06-06] MEDS: ENOXAPARIN SODIUM 40 MG/0.4 ML SYRINGE SQ SCH (08:27)
[2017-06-06] MEDS: GABAPENTIN 400 MG CAP PO SCH ×4 (08:27→20:13)
[2017-06-06] MEDS: SODIUM CHLORIDE 0.9% FLUSH 10 ML FLUSH IV FLUSH SCH ×2 (08:27→20:13)
[2017-06-06 11:20] LABS: HEPATITIS A AB IGM NEGATIVE (NEGATIVE); HEPATITIS B CORE AB IGM NEGATIVE (NEGATIVE); HEPATITIS B SURFACE ANTIGEN NEGATIVE (NEGATIVE); HEPATITIS C AB IgG NEGATIVE (NEGATIVE)
[2017-06-06 12:00] VITALS: BP 135/76; PULSE 77; RESP 18; TEMP 97.8; O2SAT 95
--- NOTE | 2017-06-06 12:25 | HHI.PR ---
Subjective Remarks pain intermittent- yesterday - relieved with Dilaudid- now with diluadid complains of nausea + BM soft still epigastric pain voiding well Objective Vitals Vital Signs Date Time Temp Pulse Resp B/P (MAP) Pulse Ox O2 Delivery O2 Flow Rate FiO2 06/06/17 08:00 97.5 66 18 143/73 (96) 96 06/06/17 04:35 97.9 72 17 140/80 (100) 95 06/06/17 00:15 97.3 77 17 143/78 (99) 95 06/05/17 21:30 98.0 70 17 155/78 (103) 94 06/05/17 16:00 97.8 75 18 149/85 (106) 96 I/O 06/05/17 06/05/17 06/05/17 06/06/17 06/06/17 06/06/17 06:59 14:59 22:59 06:59 14:59 22:59 Intake Total 1875 ml 0 ml 1864 ml 240 ml Balance 1875 ml 0 ml 1864 ml 240 ml Intake Oral 480 ml 0 ml 720 ml 240 ml IV Total 1395 ml 1144 ml # Voids 2 4 2 5 # Bowel Movements 0 0 0 Result Diagram: 06/04/17 0510 06/03/17 0825 Imaging Last Impressions Abdomen Ultrasound 06/05/17 0000 Signed Impressions: Service Date/Time: Monday, June 05, 2017 13:50 - CONCLUSION: 1. No evidence of hemodynamically significant stenosis. 2. Mild elevation of peak systolic loss in the celiac axis which may represent mild stenosis. 3. Otherwise normal exam. Crow Stephen MD Abdomen/Pelvis CT 06/03/17 0816 Signed Impressions: Service Date/Time: Saturday, June 03, 2017 08:38 - CONCLUSION: Mild peripancreatic inflammatory changes are noted suggestive of acute pancreatitis. No focal pancreatic abscess or pseudocyst is noted. Correlation with amylase and lipase is recommended. Milton Rose MD Cholangiopancreatography MRI 06/03/17 0000 Signed Impressions: Service Date/Time: Saturday, June 03, 2017 11:52 - CONCLUSION: 1. Mild diffuse hepatic enlargement and minimal peripancreatic inflammatory changes suggesting acute pancreatitis. Correlation with amylase and lipase values is suggested. 2. No biliary or pancreatic ductal dilatation. Milton Rose MD Objective Remarks awake and alert, no jaundice anicteric lungs clear regular rhythm abdomen- soft, + tenderness on deep palpation of epigastric area extremities no edema neuro exam- non focal A/P Assessment and Plan 57 years old female Acute pancreatitis- history of previous pancreatitis had stent placed in the past work up in progress. At one point - deemed to be possibly autoimmune related MRCP with no pancreatic or biliary ductal dilatation. GI ff- US ordered- no mesenteric ischemia - trial of full liquids- tolerated- advance to soft prn IV Morphine- per patient causes more nausea- we will change to IV dilaudid- DC- states cause nausea per patient - will try Hydrocodone 1/2 tab po q 4 prn for pain Hypertension/ hypothyroidism; resume home meds. History of peripheral neuropathy restart on her Gabapentin 400 mg po qid History of Insomnia - Ambien 10 mg hs prn - -DVT prophylaxis with subq Lovenox. - patient also up and ambulating Tej Aldridge MD Jun 06, 2017 12:25
[2017-06-06] MEDS: PANTOPRAZOLE SODIUM 40 MG VIAL IV PUSH SCH (12:36)
[2017-06-06] MEDS ORDERED: PILL SPLITTER OTHER PRN (12:45)
[2017-06-06] MEDS: ACETAMINOPHEN/HYDROcodone 325 MG/5 MG TAB PO PRN ×2 (13:56→18:27)
--- NOTE | 2017-06-06 14:55 | HHI.GIFU ---
Subjective Remarks Pt resting in bed. States some improvement in pain. Tolerating soft food diet. Reports nausea, thinks related to pain medication. Denies vomiting. Does report BM today. (Emma Marr) Objective Vitals I&O Vital Signs Date Time Temp Pulse Resp B/P (MAP) Pulse Ox O2 Delivery O2 Flow Rate FiO2 06/06/17 12:00 97.8 77 18 135/76 (95) 95 06/06/17 08:00 97.5 66 18 143/73 (96) 96 06/06/17 04:35 97.9 72 17 140/80 (100) 95 06/06/17 00:15 97.3 77 17 143/78 (99) 95 06/05/17 21:30 98.0 70 17 155/78 (103) 94 06/05/17 16:00 97.8 75 18 149/85 (106) 96 I/O 06/05/17 06/05/17 06/05/17 06/06/17 06/06/17 06/06/17 06:59 14:59 22:59 06:59 14:59 22:59 Intake Total 1875 ml 0 ml 1864 ml 1930 ml Balance 1875 ml 0 ml 1864 ml 1930 ml Intake Oral 480 ml 0 ml 720 ml 240 ml IV Total 1395 ml 1144 ml 1690 ml # Voids 2 4 2 5 # Bowel Movements 0 0 0 Laboratory Laboratory Tests Test 06/06/17 11:00 06/06/17 14:00 Lipase 69 Imaging Last Impressions Abdomen Ultrasound 06/05/17 0000 Signed Impressions: Service Date/Time: Monday, June 05, 2017 13:50 - CONCLUSION: 1. No evidence of hemodynamically significant stenosis. 2. Mild elevation of peak systolic loss in the celiac axis which may represent mild stenosis. 3. Otherwise normal exam. Crow Stepehn MD Abdomen/Pelvis CT 06/03/17 0816 Signed Impressions: Service Date/Time: Saturday, June 03, 2017 08:38 - CONCLUSION: Mild peripancreatic inflammatory changes are noted suggestive of acute pancreatitis. No focal pancreatic abscess or pseudocyst is noted. Correlation with amylase and lipase is recommended. Milton Rose MD Cholangiopancreatography MRI 06/03/17 0000 Signed Impressions: Service Date/Time: Saturday, June 03, 2017 11:52 - CONCLUSION: 1. Mild diffuse hepatic enlargement and minimal peripancreatic inflammatory changes suggesting acute pancreatitis. Correlation with amylase and lipase values is suggested. 2. No biliary or pancreatic ductal dilatation. Milton Rose MD Physical Exam HEENT: Normocephalic; atraumatic CHEST: Even/unlabored CARDIAC: RRR ABDOMEN: Soft, mild bloating , generalized mild tenderness; bowel sounds active EXTREMITIES: No clubbing, cyanosis, or edema. SKIN: Normal; no rash; no jaundice. 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 (Emma Marr) Assessment and Plan Plan ASSESSMENT - abd pain - acute on chronic pancreatitis, unclear etiology. has had 2-4 episodes in past, 1st in 2012 and had gallbladder removed & EUS by Dr Villagran with benign bx; episode in 2016 for which she had ERCP and pancreatic stent placed. LFTS WNL, lipase 100 CT imaging shows mild peripancreatic inflammation and changes suggestive acute pancreatitis, no abscess or cyst. in 2012 IGG4 was normal. regular meds include a statin per pt although not on her her med list MRCP 06/05, showing Mild diffuse hepatic enlargement and minimal peripancreatic inflammatory changes suggesting acute pancreatitis. Correlation with amylase and lipase values is suggested. No biliary or pancreatic ductal dilatation. Last EGD 2013? /Colonoscopy 2014 and Hx Appendectomy and Colectomy (06/06) Dr. Tejada reviewed records from [facility]--she had an ERCP last year-noted to have pancreas divisum and stenosis of minor papilla-s/p sphincterotomy and pancreatic stent placement- no clear etiology from extensive work up. US abdomen SMA/celiac Doppler (06/05) --> No evidence of hemodynamically significant stenosis. Mild elevation of peak systolic loss in the celiac axis which may represent mild stenosis. Otherwise normal exam. Labs pending (Gastrin, Chromogranin A, vasoactive intest polypeptide, ceruloplasmin, alpha-1 antitrypsin, porphyrin fractionated plasma, URI, celiac panel, AMA, ASMA, IgG subclass) Labs that have been completed and reviewed, hepatis panel negative, CEA 4.1, CA 19-9 17.5, Ferritin-88, Iron-34, TIBC-269 Will need repeat EUS plus minus ERCP with pancreatic stent once pancreatitis improved Continue low fat diet, monitor labs PLAN - Low fat diet - Labs pending - EUS with possible ERCP when pancreatitis resolved - Pain control - Supportive care - Further recommendations to follow Pt has been seen and examined by myself and Dr. Tejada and this note is written on her behalf (Emma Marr) Physician Comments seen, examined, agree with above we will start Creon with meals and snacks if stable may dc home in am fu gi 2 weeks avoid artificial sweeteners, milk products , trial of probiotics (Sagrario Tejada MD) Emma Marr Jun 06, 2017 14:55 Sagrario Tejada MD Jun 06, 2017 19:41
[2017-06-06 16:00] VITALS: BP 151/64; PULSE 76; RESP 18; TEMP 98.8; O2SAT 97
[2017-06-06] MEDS: ZOLPIDEM TARTRATE 10 MG TAB PO PRN (20:13)
[2017-06-06 20:35] VITALS: BP 146/84; PULSE 71; RESP 17; TEMP 97.9; O2SAT 98
[2017-06-07 00:05] VITALS: BP 120/70; PULSE 87; RESP 18; TEMP 98.6; O2SAT 96
[2017-06-07] MEDS: ACETAMINOPHEN/HYDROcodone 325 MG/5 MG TAB PO PRN ×6 (00:09→21:20)
[2017-06-07] MEDS: SODIUM CHLOR 0.9% 1000 ML INJ 1,000 ML IV SCH ×3 (01:20→21:22)
[2017-06-07 04:20] VITALS: BP 110/63; PULSE 80; RESP 18; TEMP 97.5; O2SAT 97
[2017-06-07] MEDS: LEVOTHYROXINE SODIUM 75 MCG TAB PO SCH (05:12)
[2017-06-07 08:07] VITALS: BP 139/86; PULSE 81; RESP 18; TEMP 98.3; O2SAT 99
[2017-06-07] MEDS: LISINOPRIL 20 MG TAB PO SCH (08:09)
[2017-06-07] MEDS: ENOXAPARIN SODIUM 40 MG/0.4 ML SYRINGE SQ SCH (08:09)
[2017-06-07] MEDS: LIPASE/PROTEASE/AMYLASE (24,000/76,000/120,000) CAP PO SCH ×3 (08:09→16:46)
[2017-06-07] MEDS: GABAPENTIN 400 MG CAP PO SCH ×4 (08:09→21:20)
[2017-06-07] MEDS: SODIUM CHLORIDE 0.9% FLUSH 10 ML FLUSH IV FLUSH SCH ×2 (08:11→21:21)
[2017-06-07] MEDS: ONDANSETRON HCL 4 MG/2 ML VIAL IV PUSH PRN (09:34)
[2017-06-07 13:58] LABS: SMOOTH MUSCLE TOTAL AUTOABS Negative (Negative)
--- NOTE | 2017-06-07 14:32 | HHI.PR ---
Subjective Remarks patient feels bloating sensation positive liquid stools- minimal, + flatus Objective Vitals Vital Signs Date Time Temp Pulse Resp B/P (MAP) Pulse Ox O2 Delivery O2 Flow Rate FiO2 06/07/17 09:11 16 06/07/17 08:07 98.3 81 18 139/86 (103) 99 06/07/17 04:20 97.5 80 18 110/63 (79) 97 06/07/17 00:05 98.6 87 18 120/70 (87) 96 06/06/17 20:35 97.9 71 17 146/84 (104) 98 06/06/17 16:00 98.8 76 18 151/64 (93) 97 I/O 06/06/17 06/06/17 06/06/17 06/07/17 06/07/17 06/07/17 07:00 15:00 23:00 07:00 15:00 23:00 Intake Total 2530 ml 360 ml 1310 ml Balance 2530 ml 360 ml 1310 ml Intake Oral 840 ml 360 ml 360 ml IV Total 1690 ml 950 ml # Voids 8 1 1 # Bowel Movements 2 0 1 Result Diagram: 06/04/17 0510 06/03/17 0825 Imaging Last Impressions Abdomen Ultrasound 06/05/17 0000 Signed Impressions: Service Date/Time: Monday, June 05, 2017 13:50 - CONCLUSION: 1. No evidence of hemodynamically significant stenosis. 2. Mild elevation of peak systolic loss in the celiac axis which may represent mild stenosis. 3. Otherwise normal exam. Crow Stephen MD Abdomen/Pelvis CT 06/03/17 0816 Signed Impressions: Service Date/Time: Saturday, June 03, 2017 08:38 - CONCLUSION: Mild peripancreatic inflammatory changes are noted suggestive of acute pancreatitis. No focal pancreatic abscess or pseudocyst is noted. Correlation with amylase and lipase is recommended. Milton Rose MD Cholangiopancreatography MRI 06/03/17 0000 Signed Impressions: Service Date/Time: Saturday, June 03, 2017 11:52 - CONCLUSION: 1. Mild diffuse hepatic enlargement and minimal peripancreatic inflammatory changes suggesting acute pancreatitis. Correlation with amylase and lipase values is suggested. 2. No biliary or pancreatic ductal dilatation. Milton Rose MD Objective Remarks awake and alert, no jaundice anicteric lungs clear regular rhythm abdomen- soft, + tenderness on deep, + bowel sounds, + tympanitic extremities no edema neuro exam- non focal A/P Assessment and Plan 57 years old female Recurrent pancreatitis- - history of previous pancreatitis had stent placed in the past- work up in progress. At one point - deemed to be possibly autoimmune related MRCP with no pancreatic or biliary ductal dilatation. GI ff- US ordered- no mesenteric ischemia - trial of full liquids- tolerated- advanced to soft prn IV Morphine- per patient causes more nausea- we will change to IV dilaudid- DC- states cause nausea per patient - increase to full tab hydrocodone and premedicate with Phenergan q 4 prn - trial of this regimen for pain control Bloating sensation/Gassy sensation/ Diarrhea get abdominal XR- supine and upright trial of simethicone 60 mg po qid GI ff Hypertension/ hypothyroidism; resume home meds. History of peripheral neuropathy restart on her Gabapentin 400 mg po qid History of Insomnia - Ambien 10 mg hs prn History of chronic back pain on prn 1/2 tab lortab as OP - -DVT prophylaxis with subq Lovenox. - patient also up and ambulating Tej Aldridge MD Jun 07, 2017 14:32
[2017-06-07] MEDS ORDERED: ONDANSETRON ODT 4 MG TAB PO PRN (14:45)
[2017-06-07] MEDS ORDERED: PILL SPLITTER OTHER PRN (15:00)
--- NOTE | 2017-06-07 15:40 | HHI.GIFU ---
Subjective Remarks Pt resting in bed, just returned from x-ray. Reports severe abdominal pain earlier today, now easing some with a heat pack. Denies nausea, vomiting. Was only able to eat a quarter of a ham sandwich for lunch and a few bites of scrambled eggs for breakfast. (Emma Marr) Objective Vitals I&O Vital Signs Date Time Temp Pulse Resp B/P (MAP) Pulse Ox O2 Delivery O2 Flow Rate FiO2 06/07/17 09:11 16 06/07/17 08:07 98.3 81 18 139/86 (103) 99 06/07/17 04:20 97.5 80 18 110/63 (79) 97 06/07/17 00:05 98.6 87 18 120/70 (87) 96 06/06/17 20:35 97.9 71 17 146/84 (104) 98 06/06/17 16:00 98.8 76 18 151/64 (93) 97 I/O 06/06/17 06/06/17 06/06/17 06/07/17 06/07/17 06/07/17 07:00 15:00 23:00 07:00 15:00 23:00 Intake Total 2530 ml 360 ml 1310 ml Balance 2530 ml 360 ml 1310 ml Intake Oral 840 ml 360 ml 360 ml IV Total 1690 ml 950 ml # Voids 8 1 1 # Bowel Movements 2 0 1 Imaging Last Impressions Abdomen Ultrasound 06/05/17 0000 Signed Impressions: Service Date/Time: Monday, June 05, 2017 13:50 - CONCLUSION: 1. No evidence of hemodynamically significant stenosis. 2. Mild elevation of peak systolic loss in the celiac axis which may represent mild stenosis. 3. Otherwise normal exam. Crow Stephen MD Abdomen/Pelvis CT 06/03/17 0816 Signed Impressions: Service Date/Time: Saturday, June 03, 2017 08:38 - CONCLUSION: Mild peripancreatic inflammatory changes are noted suggestive of acute pancreatitis. No focal pancreatic abscess or pseudocyst is noted. Correlation with amylase and lipase is recommended. Milton Rose MD Cholangiopancreatography MRI 06/03/17 0000 Signed Impressions: Service Date/Time: Saturday, June 03, 2017 11:52 - CONCLUSION: 1. Mild diffuse hepatic enlargement and minimal peripancreatic inflammatory changes suggesting acute pancreatitis. Correlation with amylase and lipase values is suggested. 2. No biliary or pancreatic ductal dilatation. Milton Rose MD Physical Exam HEENT: Normocephalic; atraumatic CHEST: Even/unlabored CARDIAC: RRR ABDOMEN: Soft, mild bloating , generalized mild tenderness; bowel sounds active EXTREMITIES: No clubbing, cyanosis, or edema. SKIN: Normal; no rash; no jaundice. 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 (Emma Marr FITNESS FLOOR ATTENDANT) Assessment and Plan Plan ASSESSMENT - abd pain - acute on chronic pancreatitis, unclear etiology. has had 2-4 episodes in past, 1st in 2012 and had gallbladder removed & EUS by Dr Villagran with benign bx; episode in 2016 for which she had ERCP and pancreatic stent placed. LFTS WNL, lipase 100 CT imaging shows mild peripancreatic inflammation and changes suggestive acute pancreatitis, no abscess or cyst. in 2012 IGG4 was normal. regular meds include a statin per pt although not on her her med list MRCP 06/05, showing Mild diffuse hepatic enlargement and minimal peripancreatic inflammatory changes suggesting acute pancreatitis. Correlation with amylase and lipase values is suggested. No biliary or pancreatic ductal dilatation. Last EGD 2013? /Colonoscopy 2014 and Hx Appendectomy and Colectomy (06/06) Dr. Tejada reviewed records from [facility]--she had an ERCP last year-noted to have pancreas divisum and stenosis of minor papilla-s/p sphincterotomy and pancreatic stent placement- no clear etiology from extensive work up. US abdomen SMA/celiac Doppler (06/05) --> No evidence of hemodynamically significant stenosis. Mild elevation of peak systolic loss in the celiac axis which may represent mild stenosis. Otherwise normal exam. Labs pending (Gastrin, Chromogranin A, vasoactive intest polypeptide, ceruloplasmin, alpha-1 antitrypsin, porphyrin fractionated plasma, URI, celiac panel, AMA, ASMA, IgG subclass) Labs that have been completed and reviewed, hepatis panel negative, CEA 4.1, CA 19-9 17.5, Ferritin-88, Iron-34, TIBC-269 Will need repeat EUS plus minus ERCP with pancreatic stent once pancreatitis improved Continue low fat diet, monitor labs (06/07) Labs as above still pending. Did call office to call pts to make appt for EUS with possible ERCP. Pt reports abdominal pain was severe earlier, now relieved some with heat pack. KUB pending. Pt requesting medication for gas. Simethicone in chart to be given as needed. Will also add MiraLAX. Pt started on Creon, first administered today with lunch. PLAN - KUB pending - Low fat diet - Labs pending - EUS with possible ERCP outpatient- office to call to schedule - Simethicone PRN - MiraLAX - Pain control - Supportive care - Further recommendations to follow Pt has been seen and examined by myself and Dr. Tejada and this note is written on her behalf (Emma Marr) Physician Comments seen, examined agree with above abdominal x ray noted hold discharge for today abdominal x ray in am, if not better, repeat ct abdomen/pelvis with oral contrast (Sagrario Tejada MD) Emma Marr Jun 07, 2017 15:40 Sagrario Tejada MD Jun 07, 2017 16:33
--- NOTE | 2017-06-07 15:45 | RADRPT ---
EXAM DATE/TIME: 06/07/2017 15:03 [facility] COMPARISON: No previous studies available for comparison. INDICATIONS : Abdominal pain, distension for 2 weeks MEDICAL HISTORY : Pancreatitis. Hypertension SURGICAL HISTORY : Appendectomy. Cholecystectomy.Colon resection.Pancreatic stent, hysterectomy. ENCOUNTER: Subsequent ACUITY: 2 weeks PAIN SCORE: 5/10 LOCATION: Bilateral abdomen FINDINGS: Supine and upright views of the abdomen were performed. There is some mild air distention of small paz wel loops in the midabdomen which may be one or 2 air-fluid levels in the same general vicinity. Suri maria luz is more characteristic of a hypodynamic ileus. No pneumoperitoneum. Osseous structures are intact . Fine surgical vandana in the right lower abdominal quadrant. CONCLUSION: 1. Surgical vandana in the right lower abdominal quadrant may be indicative of prior bowel surgery. 2. Mild air distention of small bowel loops in the midabdomen with one or 2 air fluid levels. Pattern is most characteristic of a hypodynamic ileus although an early partial small bowel obstruction ning ot be completely excluded. 3. No pneumoperitoneum. Franklin Aly MD on June 07, 2017 at 15:35 Board Certified Radiologist. This report was verified electronically.
[2017-06-07] MEDS: SIMETHICONE 80 MG CHEWABLE TAB CHEW PRN ×2 (16:45→21:30)
[2017-06-07] MEDS: PROMETHAZINE HCL 25 MG TAB PO PRN ×2 (16:47→21:20)
[2017-06-07 16:48] VITALS: BP 117/77; PULSE 81; RESP 17; TEMP 97.8; O2SAT 96
[2017-06-07 20:50] VITALS: BP 133/79; PULSE 71; RESP 17; TEMP 99; O2SAT 94
[2017-06-07] MEDS: ZOLPIDEM TARTRATE 10 MG TAB PO PRN (21:21)
[2017-06-07 22:34] LABS: AUTOMATED NEUTROPHIL # 3.8 TH/MM3 (1.8-7.7); BASOPHIL % 0.4 % (0.0-2.0); EOSINOPHIL # 0.3 TH/MM3 (0-0.4); EOSINOPHIL % 3.7 % (0.0-4.0); HEMATOCRIT 35.7 % (35.0-46.0); HEMOGLOBIN 12.3 GM/DL (11.6-15.3); LYMPH % 32.4 % (9.0-44.0); LYMPHOCYTE # 2.4 TH/MM3 (1.0-4.8); MEAN CELL VOLUME 91.7 FL (80.0-100.0); MEAN CORPUSCULAR HEMOGLOBIN 31.6 PG (27.0-34.0); MEAN CORPUSCULAR HGB CONC 34.4 % (32.0-36.0); MEAN PLATELET VOLUME 9.9 FL (7.0-11.0); MONO % 11.2 % (0.0-8.0); MONOCYTE # 0.8 TH/MM3 (0-0.9); NEUT % 52.3 % (16.0-70.0); PLATELET COUNT 219 TH/MM3 (150-450); RED BLOOD COUNT 3.89 MIL/MM3 (4.00-5.30); RED CELL DISTRIBUTION WIDTH 12.8 % (11.6-17.2); WHITE BLOOD COUNT 7.3 TH/MM3 (4.0-11.0)
[2017-06-07 23:02] LABS: ALT (GPT) 24 U/L (10-53); AST (GOT) 12 U/L (15-37); BICARBONATE 26.9 MEQ/L (21.0-32.0); BLOOD UREA NITROGEN 7 MG/DL (7-18); CALCIUM 8.1 MG/DL (8.5-10.1); CHLORIDE 110 MEQ/L (98-107); CREATININE 0.67 MG/DL (0.50-1.00); GLOMERULAR FILTRATION RATE 91 ML/MIN (>89); GLUCOSE,RANDOM 87 MG/DL (74-106); LIPASE 82 U/L (73-393); SODIUM (NA) 145 MEQ/L (136-145)
[2017-06-07 23:04] LABS: ALKALINE PHOSPHATASE 55 U/L (45-117); TOTAL BILIRUBIN ADULT 0.4 MG/DL (0.2-1.0); TOTAL PROTEIN 5.8 GM/DL (6.4-8.2)
[2017-06-08 00:50] VITALS: BP 116/69; PULSE 81; RESP 18; TEMP 99.1; O2SAT 94
[2017-06-08] MEDS: PROMETHAZINE HCL 25 MG TAB PO PRN ×2 (04:32→10:10)
[2017-06-08] MEDS: SIMETHICONE 80 MG CHEWABLE TAB CHEW PRN ×2 (04:32→10:10)
[2017-06-08] MEDS: ACETAMINOPHEN/HYDROcodone 325 MG/5 MG TAB PO PRN ×2 (04:32→10:10)
[2017-06-08] MEDS: LEVOTHYROXINE SODIUM 75 MCG TAB PO SCH (04:33)
[2017-06-08 07:58] VITALS: BP 127/67; PULSE 74; RESP 18; TEMP 98.6; O2SAT 95
[2017-06-08] MEDS ORDERED: POTASSIUM BICARBONATE 25 MEQ EFFERVESCENT TAB PO ONE (08:00)
[2017-06-08] MEDS: LISINOPRIL 20 MG TAB PO SCH (09:00)
[2017-06-08] MEDS ORDERED: POLYETHYLENE GLYCOL 17 GM PKG PO SCH (09:00)
[2017-06-08] MEDS: SODIUM CHLORIDE 0.9% FLUSH 10 ML FLUSH IV FLUSH SCH (09:00)
[2017-06-08] MEDS ORDERED: PANTOPRAZOLE SOD 40 MG DELAYED RELEASE TAB PO SCH (09:00)
--- NOTE | 2017-06-08 09:12 | RADRPT ---
EXAM DATE/TIME: 06/08/2017 08:38 [facility] COMPARISON: ABDOMEN FLAT & UPRIGHT, June 07, 2017, 15:03. INDICATIONS : Evaluate for Ileus, abdominal pain, nausea, diarrhea. MEDICAL HISTORY : Hypertension. Smoker. SURGICAL HISTORY : Appendectomy. Cholecystectomy. Hysterectomy. Colon resection. ENCOUNTER: Subsequent ACUITY: 2 weeks PAIN SCORE: 7/10 LOCATION: Bilateral lower quadrant FINDINGS: Supine and upright views of the abdomen were performed. Mildly dilated small bowel loops again seen w ith air-fluid levels. No abnormal masses, calcifications, or organomegaly is seen. The visualized l ower lungs are clear. No evidence of free intraperitoneal gas. The osseous structures are unremarka ble. CONCLUSION: 1. Mildly dilated small bowel loops again seen. Jensen Greer MD on June 08, 2017 at 9:09 Board Certified Radiologist. This report was verified electronically.
[2017-06-08] MEDS: LIPASE/PROTEASE/AMYLASE (24,000/76,000/120,000) CAP PO SCH ×2 (10:11→14:50)
[2017-06-08] MEDS: ENOXAPARIN SODIUM 40 MG/0.4 ML SYRINGE SQ SCH (10:11)
[2017-06-08] MEDS: GABAPENTIN 400 MG CAP PO SCH ×2 (10:11→13:00)
[2017-06-08 11:32] VITALS: BP 121/70; PULSE 62; RESP 18; TEMP 98.7; O2SAT 97
--- NOTE | 2017-06-08 12:03 | HHI.PR ---
Subjective Remarks up side of the chair, and ambulating feeling better toelrting po well pain- - still there but much improved + small stool - complains of chronic consitpation Objective Vitals Vital Signs Date Time Temp Pulse Resp B/P (MAP) Pulse Ox O2 Delivery O2 Flow Rate FiO2 06/08/17 11:32 98.7 62 18 121/70 (87) 97 06/08/17 07:58 98.6 74 18 127/67 (87) 95 06/08/17 07:27 Room Air 06/08/17 00:50 99.1 81 18 116/69 (85) 94 06/07/17 20:50 99.0 71 17 133/79 (97) 94 06/07/17 16:48 97.8 81 17 117/77 (90) 96 I/O 06/07/17 06/07/17 06/07/17 06/08/17 06/08/17 06/08/17 07:00 15:00 23:00 07:00 15:00 23:00 Intake Total 1310 ml 360 ml 480 ml Balance 1310 ml 360 ml 480 ml Intake Oral 360 ml 360 ml 480 ml IV Total 950 ml # Voids 1 1 2 # Bowel Movements 1 1 1 Result Diagram: 06/07/17211606/07/172116 Imaging Last Impressions Abdomen X-Ray 06/08/17 0800 Signed Impressions: Service Date/Time: May 08:38 - CONCLUSION: 1. Mildly dilated small bowel loops again seen. Jensen Greer MD Abdomen Ultrasound 06/05/17 0000 Signed Impressions: Service Date/Time: Monday, June 05, 2017 13:50 - CONCLUSION: 1. No evidence of hemodynamically significant stenosis. 2. Mild elevation of peak systolic loss in the celiac axis which may represent mild stenosis. 3. Otherwise normal exam. Crow Stephen MD Abdomen/Pelvis CT 06/03/17 0816 Signed Impressions: Service Date/Time: Saturday, June 03, 2017 08:38 - CONCLUSION: Mild peripancreatic inflammatory changes are noted suggestive of acute pancreatitis. No focal pancreatic abscess or pseudocyst is noted. Correlation with amylase and lipase is recommended. Milton Rose MD Cholangiopancreatography MRI 06/03/17 0000 Signed Impressions: Service Date/Time: Saturday, June 03, 2017 11:52 - CONCLUSION: 1. Mild diffuse hepatic enlargement and minimal peripancreatic inflammatory changes suggesting acute pancreatitis. Correlation with amylase and lipase values is suggested. 2. No biliary or pancreatic ductal dilatation. Milton Rose MD Objective Remarks awake and alert, no jaundice anicteric lungs clear regular rhythm abdomen- soft, good bowel sounds, tympanitic, minimal tenderness extremities no edema neuro exam- non focal A/P Assessment and Plan 57 years old female Recurrent pancreatitis- - history of previous pancreatitis had stent placed in the past- clinically improving At one point - deemed to be possibly autoimmune related MRCP with no pancreatic or biliary ductal dilatation. GI ff- US ordered- no mesenteric ischemia tolerated advanced diet prn IV Morphine- per patient causes more nausea- we will change to IV dilaudid- DC- states cause nausea per patient - increase to full tab hydrocodone and premedicate with Phenergan q 4 prn - trial of this regimen for pain control Bloating sensation/Gassy sensation/ Diarrhea- XR reviewed- mild ileus- clinically improved trial of simethicone 60 mg po qid- helped GI ff Hypertension/ hypothyroidism; resume home meds. History of peripheral neuropathy restart on her Gabapentin 400 mg po qid History of Insomnia - Ambien 10 mg hs prn History of chronic back pain on prn 1/2 tab lortab as OP Hypokalemia- replace with po K x 1 advise eat bananas daily recheck as OP - -DVT prophylaxis with subq Lovenox. - patient also up and ambulating DC today if cleared with GI with OP ff up Tej Aldridge MD Jun 08, 2017 12:03
[2017-06-08] MEDS ORDERED: DOCUSATE SODIUM 50 MG/SENNA 8.6 MG TAB PO SCH (12:15)
[2017-06-08] MEDS ORDERED: PERI PO (12:17)
[2017-06-08] MEDS ORDERED: CREON24 PO (12:18)
[2017-06-08] MEDS ORDERED: Simethicone Chew CHEW (12:19)
[2017-06-08] MEDS ORDERED: PANT40TA3 PO (12:19)
[2017-06-08] MEDS ORDERED: HYDR-3516 PO (12:28)
[2017-06-08] MEDS ORDERED: POTA10CA PO (12:30)
[2017-06-08 13:52] LABS: ENDOMYSIAL AB SCREEN ND (NEGATIVE); ENDOMYSIAL AB TITER ND (<1:5)
--- NOTE | 2017-06-08 15:15 | HHI.GIFU ---
Subjective Remarks pt ambulating in room. pain somewhat improved. eager to go home. + liquid stool. still distended. Objective Vitals I&O Vital Signs Date Time Temp Pulse Resp B/P (MAP) Pulse Ox O2 Delivery O2 Flow Rate FiO2 06/08/17 11:32 98.7 62 18 121/70 (87) 97 06/08/17 07:58 98.6 74 18 127/67 (87) 95 06/08/17 07:27 Room Air 06/08/17 00:50 99.1 81 18 116/69 (85) 94 06/07/17 20:50 99.0 71 17 133/79 (97) 94 06/07/17 16:48 97.8 81 17 117/77 (90) 96 I/O 06/07/17 06/07/17 06/07/17 06/08/17 06/08/17 06/08/17 07:00 15:00 23:00 07:00 15:00 23:00 Intake Total 1310 ml 360 ml 480 ml 950 ml Balance 1310 ml 360 ml 480 ml 950 ml Intake Oral 360 ml 360 ml 480 ml 950 ml IV Total 950 ml # Voids 1 1 2 4 # Bowel Movements 1 1 1 Laboratory Laboratory Tests Test 06/07/17 21:17 White Blood Count 7.3 Red Blood Count 3.89 Hemoglobin 12.3 Hematocrit 35.7 Mean Corpuscular Volume 91.7 Mean Corpuscular Hemoglobin 31.6 Mean Corpuscular Hemoglobin Concent 34.4 Red Cell Distribution Width 12.8 Platelet Count 219 Mean Platelet Volume 9.9 Neutrophils (%) (Auto) 52.3 Lymphocytes (%) (Auto) 32.4 Monocytes (%) (Auto) 11.2 Eosinophils (%) (Auto) 3.7 Basophils (%) (Auto) 0.4 Neutrophils # (Auto) 3.8 Lymphocytes # (Auto) 2.4 Monocytes # (Auto) 0.8 Eosinophils # (Auto) 0.3 Basophils # (Auto) 0.0 CBC Comment DIFF FINAL Differential Comment Blood Urea Nitrogen 7 Creatinine 0.67 Random Glucose 87 Total Protein 5.8 Albumin 3.0 Calcium Level 8.1 Alkaline Phosphatase 55 Aspartate Amino Transf (AST/SGOT) 12 Alanine Aminotransferase (ALT/SGPT) 24 Total Bilirubin 0.4 Sodium Level 145 Potassium Level 3.3 Chloride Level 110 Carbon Dioxide Level 26.9 Anion Gap 8 Estimat Glomerular Filtration Rate 91 Lipase 82 Imaging Last Impressions Abdomen X-Ray 06/08/17 0800 Signed Impressions: Service Date/Time: May 08:38 - CONCLUSION: 1. Mildly dilated small bowel loops again seen. Jensen Greer MD Abdomen Ultrasound 06/05/17 0000 Signed Impressions: Service Date/Time: Monday, June 05, 2017 13:50 - CONCLUSION: 1. No evidence of hemodynamically significant stenosis. 2. Mild elevation of peak systolic loss in the celiac axis which may represent mild stenosis. 3. Otherwise normal exam. Crow Stephen MD Abdomen/Pelvis CT 06/03/17 0816 Signed Impressions: Service Date/Time: Saturday, June 03, 2017 08:38 - CONCLUSION: Mild peripancreatic inflammatory changes are noted suggestive of acute pancreatitis. No focal pancreatic abscess or pseudocyst is noted. Correlation with amylase and lipase is recommended. Milton Rose MD Cholangiopancreatography MRI 06/03/17 0000 Signed Impressions: Service Date/Time: Saturday, June 03, 2017 11:52 - CONCLUSION: 1. Mild diffuse hepatic enlargement and minimal peripancreatic inflammatory changes suggesting acute pancreatitis. Correlation with amylase and lipase values is suggested. 2. No biliary or pancreatic ductal dilatation. Milton Rose MD Physical Exam HEENT: Normocephalic; atraumatic CHEST: Even/unlabored CARDIAC: RRR ABDOMEN: Soft, mild bloating , generalized mild tenderness; bowel sounds active EXTREMITIES: No clubbing, cyanosis, or edema. SKIN: Normal; no rash; no jaundice. 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 Assessment and Plan Plan ASSESSMENT - abd pain - acute on chronic pancreatitis, unclear etiology. has had 2-4 episodes in past, 1st in 2012 and had gallbladder removed & EUS by Dr Villagran with benign bx; episode in 2016 for which she had ERCP and pancreatic stent placed. LFTS WNL, lipase 100 CT imaging shows mild peripancreatic inflammation and changes suggestive acute pancreatitis, no abscess or cyst. in 2012 IGG4 was normal. regular meds include a statin per pt although not on her her med list MRCP 06/05, showing Mild diffuse hepatic enlargement and minimal peripancreatic inflammatory changes suggesting acute pancreatitis. Correlation with amylase and lipase values is suggested. No biliary or pancreatic ductal dilatation. Last EGD 2013? /Colonoscopy 2014 and Hx Appendectomy and Colectomy (06/06) Dr. Tejada reviewed records from [facility]--she had an ERCP last year-noted to have pancreas divisum and stenosis of minor papilla-s/p sphincterotomy and pancreatic stent placement- no clear etiology from extensive work up. US abdomen SMA/celiac Doppler (06/05) --> No evidence of hemodynamically significant stenosis. Mild elevation of peak systolic loss in the celiac axis which may represent mild stenosis. Otherwise normal exam. Labs pending (Gastrin, Chromogranin A, vasoactive intest polypeptide, ceruloplasmin, alpha-1 antitrypsin, porphyrin fractionated plasma, URI, celiac panel, AMA, ASMA, IgG subclass) Labs that have been completed and reviewed, hepatis panel negative, CEA 4.1, CA 19-9 17.5, Ferritin-88, Iron-34, TIBC-269 Will need repeat EUS plus minus ERCP with pancreatic stent once pancreatitis improved Continue low fat diet, monitor labs (06/07) Labs as above still pending. Did call office to call pts to make appt for EUS with possible ERCP. Pt reports abdominal pain was severe earlier, now relieved some with heat pack. KUB pending. Pt requesting medication for gas. Simethicone in chart to be given as needed. Will also add MiraLAX. Pt started on Creon, first administered today with lunch. 06/08 - scheduling of EUS in process. simethicone helps pain. KUB mildly dilated small bowel loops. + liquid stool will try bentyl. PLAN - cont creon - trial Bentyl, this will be called in to her pharmacy - Labs pending - EUS with possible ERCP outpatient- office to call to schedule - Simethicone PRN - MiraLAX - Pain control - Supportive care - call office of abd pain worsens - ok to d/c from GI standpoint Pt has been seen and examined by myself and Dr. Tejada and this note is written on her behalf Sera Cyr Jun 08, 2017 15:15
[2017-06-08 15:19] LABS: TOTAL PORPHYRINS <1.0 mcg/dL (<=1.0)
--- NOTE | 2017-06-08 15:34 | HHI.DS ---
Discharge Summary Admission Date Jun 03, 2017 at 21:13 Discharge Date: Jun 08, 2017 Admitting Diagnosis acute pancreatitis, intractable pain (1) Acute pancreatitis ICD Code: K85.90 - Acute pancreatitis without necrosis or infection, unspecified Diagnosis: Principal Status: Acute Procedures none Brief History - From Admission 57 years old female presented to the ED with a complaint of epigastric abdominal pain radiating to her back which got extremely worse last night, with nausea vomiting. Patient has a history of pancreatitis in the past she had cholecystectomy. She followed up with GI at [facility] last year and she required a stent placed in her pancreatic duct and sphincterotomy. Patient at her decided to come here for a workup, to give from [place]. Currently abdominal pain 6 out of 10 after pain medication, nausea is settelled. CBC/BMP: 06/07/17211606/07/172116 Significant Findings Laboratory Tests Test 06/06/17 11:00 06/06/17 14:00 06/07/17 21:17 Lipase 69 U/L (73-393) Red Blood Count 3.89 MIL/MM3 (4.00-5.30) Monocytes (%) (Auto) 11.2 % (0.0-8.0) Total Protein 5.8 GM/DL (6.4-8.2) Albumin 3.0 GM/DL (3.4-5.0) Calcium Level 8.1 MG/DL (8.5-10.1) Aspartate Amino Transf (AST/SGOT) 12 U/L (15-37) Potassium Level 3.3 MEQ/L (3.5-5.1) Chloride Level 110 MEQ/L (98-107) Imaging Last Impressions Abdomen X-Ray 06/08/17 0800 Signed Impressions: Service Date/Time: May 08:38 - CONCLUSION: 1. Mildly dilated small bowel loops again seen. Jensen Greer MD Abdomen Ultrasound 06/05/17 0000 Signed Impressions: Service Date/Time: Monday, June 05, 2017 13:50 - CONCLUSION: 1. No evidence of hemodynamically significant stenosis. 2. Mild elevation of peak systolic loss in the celiac axis which may represent mild stenosis. 3. Otherwise normal exam. Crow Stephen MD Abdomen/Pelvis CT 06/03/17 0816 Signed Impressions: Service Date/Time: Saturday, June 03, 2017 08:38 - CONCLUSION: Mild peripancreatic inflammatory changes are noted suggestive of acute pancreatitis. No focal pancreatic abscess or pseudocyst is noted. Correlation with amylase and lipase is recommended. Milton Rose MD Cholangiopancreatography MRI 06/03/17 0000 Signed Impressions: Service Date/Time: Saturday, June 03, 2017 11:52 - CONCLUSION: 1. Mild diffuse hepatic enlargement and minimal peripancreatic inflammatory changes suggesting acute pancreatitis. Correlation with amylase and lipase values is suggested. 2. No biliary or pancreatic ductal dilatation. Milton Rose MD PE at Discharge awake and alert, no jaundice anicteric lungs clear regular rhythm abdomen- soft, good bowel sounds, tympanitic, minimal tenderness extremities no edema neuro exam- non focal Pt update on day of discharge awake and alert, comfortable no nausea or vomiting tolerated po well Hospital Course 57 years old female Recurrent pancreatitis- - history of previous pancreatitis had stent placed in the past- clinically improving At one point - deemed to be possibly autoimmune related MRCP with no pancreatic or biliary ductal dilatation. GI ff- US ordered- no mesenteric ischemia tolerated advanced diet prn IV Morphine- per patient causes more nausea- we will change to IV dilaudid- DC- states cause nausea per patient - increase to full tab hydrocodone and premedicate with Phenergan q 4 prn - trial of this regimen for pain control Bloating sensation/Gassy sensation/ Diarrhea- XR reviewed- mild ileus- clinically improved trial of simethicone 60 mg po qid- helped GI ff Hypertension/ hypothyroidism; resume home meds. History of peripheral neuropathy restart on her Gabapentin 400 mg po qid History of Insomnia - Ambien 10 mg hs prn History of chronic back pain on prn 1/2 tab lortab as OP Hypokalemia- replace with po K x 1 advise eat bananas daily recheck as OP -DVT prophylaxis with subq Lovenox. - patient also up and ambulating DC today-cleared with GI with OP ff up Pt Condition on Discharge: Stable Discharge Disposition: Discharge Home Discharge Time: <= 30 minutes Discharge Instructions DIET: Follow Instructions for: As Tolerated, No Restrictions Speech Therapy-Diet Recommends: Regular Activities you can perform: Weight Bearing as Umesh Follow up Referrals: Gastroenterology - 3-5 Days with [facility] PCP Follow-up - 3-5 Days with pcp New Orders: BASIC METABOLIC PROF - 06/12/17 New Medications: Potassium Chloride ER (Potassium Chloride ER) 10 Meq Cap 10 MEQ PO DAILY for Electrolyte Replacement for 3 Days, #3 CAP 0 Refills Hydrocodone/Acetaminophen (Hydrocodone-Acetamin 5-325 mg) 5 Mg-325 Mg Tablet 1 TAB PO Q6HR PRN for PAIN SCALE 4 TO 10, #30 TAB Pancrelipase (Creon) 24,000-76,000-120,000 Units Cap 1 CAP PO TID for pNCREA for 30 Days, CAP Pantoprazole (Pantoprazole) 40 Mg Tab 40 MG PO DAILY for gi for 30 Days, #30 TAB Sennosides-Docusate Sodium (Gnp Senna Plus 8.6-50 mg) 8.6 Mg-50 Mg Tab 1 TAB PO DAILY for constipa for 30 Days, #30 TAB [Simethicone Chew] () 80 MG CHEW 80 MG CHEW QID PRN for GAS RETENTION for 30 Days Continued Medications: Carisoprodol (Soma) 350 Mg Tab 350 MG PO QID PRN for PAIN, TAB 0 Refills Gabapentin (Gabapentin) 400 Mg Cap 1 CAP PO QID, #30 CAP 0 Refills Levothyroxine (Synthroid) 75 Mcg Tab 75 MCG PO DAILY for Thyroid, #30 TAB 0 Refills Lisinopril (Lisinopril) 20 Mg Tab 20 MG PO DAILY, #30 TAB 0 Refills Promethazine (Phenergan) 25 Mg Tablet 25 MG PO Q6H PRN for NAUSEA OR VOMITING, TAB 0 Refills Tej Aldridge MD Jun 08, 2017 15:34
[2017-06-08 15:52] LABS: CERULOPLASMIN 33 mg/dL (18-53)
[2017-06-09 03:50] LABS: MITOCHONDRIAL ABS LESS THAN 20.0 U (<=20.0)
[2017-06-09 16:59] LABS: ALPHA-1-ANTITRYPSIN 172 mg/dL (100 - 190)
== END 2017-06-08 16:41 | disposition home or self-care (01) | DRG 439 ==
LOC: NEPC 07:49 → NEDA 09:37 → NEPHCDU 10:57 → OBSVTOIN 21:13 → N06B 06-04 08:34
PROVIDERS: ADMIT Internal Medicine; ATTEND Internal Medicine
DX: K85.90 Acute pancreatitis without necrosis or infection, unspecified (principal); K56.7 Ileus, unspecified; I10 Essential (primary) hypertension; G62.9 Polyneuropathy, unspecified; Z72.0 Tobacco use; E78.5 Hyperlipidemia, unspecified; E06.3 Autoimmune thyroiditis; K86.1 Other chronic pancreatitis; Z91.041 Radiographic dye allergy status; E87.6 Hypokalemia; Z90.49 Acquired absence of other specified parts of digestive tract; Z90.710 Acquired absence of both cervix and uterus; Z79.899 Other long term (current) drug therapy; G89.29 Other chronic pain
CPT/HCPCS: 74019; 74176; 74181; 76377; 80053; 80074; 81001; 82103; 82150; 82330; 82378; 82390; 82542; 82728; 82784; 82787; 82941; 83516; 83520; 83540; 83550; 83690; 84311; 84478; 84484; 84586; 85025; 86038; 86140; 86255; 86301; 86316; 93005; 93975; 96374; 96375; C9113; J1170; J1650; J1885; J2270; J2405; J7030; Q0169

== ENCOUNTER → 2017-06-16 | Outpatient (CLI) | payer MEDICARE ==
[~2017-06-16] VITALS: Ht 165.1 cm; Wt 75.1 kg
[~2017-06-16] MED LIST changes: +*HYDROmorphone PF 1 MG VIAL PERIprocedural Use ONLY ONE; +*ONDANSETRON 4 MG VIAL PERIprocedural Use ONLY ONE; +*PROMETHAZINE 25 MG/ML VIAL PERIprocedural use ONLY ONE; +ACETAMINOPHEN 1000 MG/100 ML 100 ML IV ONE; -ALBU1AER INH; -BISA5TAB5 PO; -CARI350T19 PO; +CREON24 PO; +DEXAMETHASONE SOD PHOS 4 MG/ML VIAL IV ONE; +DO NOT ADM ANY ANTICOAGULANT DRUGS PRN; +GABA400C5 PO; +GLYCOPYRROLATE 1 MG/5 ML SYRINGE IV PUSH ONE; -HYDR-2768 PO; +HYDR-3516 PO; +HYDR-3649 PO; +LACTATED RINGER'S 1000 ML IV PRN; +LIDOCAINE HCL 1% PF 5 ML SYRINGE OTHER ONE; -LISI-363 PO; +LISI-515 PO; +METOPROLOL TARTRATE 25 MG TAB PO PRN; +ONDANSETRON HCL 4 MG/2 ML VIAL IV ONE; +PANT40TA3 PO; -PERC5TAB12 PO; +PERI PO; +POTA10CA PO; +PROM25TA10 PO; -PROM25TA5 PO; +PROPOFOL 200 MG/20 ML AMP IV ONE; +SODIUM CHLORID 0.9% 500 ML IV PRN; +SOMA350T PO; +SUCCINYLCHOLINE CHLORIDE 200 MG/10 ML VIAL IV ONE; +Simethicone Chew CHEW
--- NOTE | 2017-06-16 11:53 | PD.PROCEDR ---
GI Procedure PROCEDURE PERFORMED Endoscopic ultrasound INDICATION FOR PROCEDURE History of recurrent pancreatitis PROCEDURE: The procedure, risks and benefits were discussed with Ms. Vaughn and informed consent was obtained. Anesthesia sedated her with Diprivan. She was placed in the left lateral decubitus position. Endoscopic ultrasound: The Pentax videoscope was introduced through the oropharynx and advanced to the second portion of the duodenum . FINDINGS: The pancreas appeared to be unremarkable from head to tail it was homogeneous and isoechoic the pancreatic duct also appeared to be unremarkable and within normal limits No gallbladder was seen No lymphadenopathy The common bile duct also appeared to be unremarkable with normal limits ESTIMATED BLOOD LOSS: None SPECIMENS REMOVED: None COMPLICATIONS: None IMPRESSION: Unremarkable endoscopic ultrasound with a normal pancreas PLAN: Follow-up in clinic for further evaluation and treatment Consider chiropractic evaluation for chronic back conditions Roberto Cuellar MD Jun 16, 2017 11:53
[2017-06-16 12:30] VITALS: BP 123/82; PULSE 73; RESP 20; TEMP 97.8; O2SAT 96
== END ==
LOC: HSDC 08:24
PROVIDERS: ATTEND Internal Medicine Gastroenterology
DX: Z87.19 Personal history of other diseases of the digestive system (principal); I10 Essential (primary) hypertension; F17.210 Nicotine dependence, cigarettes, uncomplicated
CPT/HCPCS: 00731; 43259; J0131; J0330; J1100; J1170; J2405; J2550; J3010; J7120